=== PATIENT | male | born 1945 | race Caucasian/White ===

== ENCOUNTER → 2020-06-27 08:51 | Outpatient (BNVA) | payer MEDICARE, SELFPAY | PROVIDERS: PCP Internal Medicine; Referring Provider Internal Medicine; Visit Provider Orthopaedic Surgery | DX: M75.41 Impingement syndrome of right shoulder (principal); M19.011 Primary osteoarthritis, right shoulder | CPT/HCPCS: 20610; 99202; 99204; 99212; J1040 ==

== ENCOUNTER 2020-07-21 09:00 | Outpatient (RCR) | payer MEDICARE, SELFPAY ==
--- NOTE | 2020-06-30 15:03 | MHC.PT.EP ---
[facility] [place] Office [place] Office [place] Office [address] Sherwin Peguero [address] [phone] F: [phone] F: [phone] F: [phone] F: [phone] Physical Therapy Plan of Care Date of Evaluation: 06/30/20 Date of Surgery: n/a Diagnosis: R shoulder pain Assessment: Patient is a 75 year old R handed male who presents with s/s consistent with R shoulder pain. He has been limited for several month and received a cortisone 3 days ago. He has a history of cervical surgery (fusion?). He enjoys golf and billiards but hasn't been able to play each. Current impairments include pain, ROM, strength, safety, posture, activity tolerance and functional mobility. Functional limitations include decreased ability to dress, lift, reach, pull, sleep, and perform weight bearing activities.. Patient is motivated with good rehab potential. Skilled PT will address impairments and functional limitations in order to achieve goals. Frequency and Duration: The patient will be seen 2x/week for 6 weeks Short Term Goals: I with HEP - 2 weeks ER/IR arc 90 - 3 weeks Pain free flexion/abd to 120 - 3 weeks Rac Specialist Goals: (-) impingement cluster - 6 weeks ER/IR arc 120 - 6 weeks Able to sleep and dress pain free - 6 weeks SPADI 40/130 or less - 5 weeks Treatment Plan: Modalities to reduce pain, spasms and effusion. Manual therapy to restore motion and function. Therapeutic exercise to improve strength and flexibility. Neuromuscular re-education for posture and balance. Therapeutic activities to return to functional activities of daily living. Please sign and return to therapist. Thank you for your referral.
--- NOTE | 2020-08-16 07:53 | MHC.PT.DC ---
[facility] [place] Office [place] Office [place] Office [address] Sherwin Peguero [address] [phone] F: [phone] F: [phone] F: [phone] F: [phone] Physical Therapy Discharge Report Diagnosis: R shoulder pain Date of Surgery: n/a Date of Evaluation: 06/30/20 Date of Discharge: Treatments to Date: 4 Cancellations to Date: 0 No Shows to Date: 0 Discharge Status: Independent with HEP Discharge Summary: Pt I with HEP and feels good, no need for further PT at this time. Electronically signed by: Luis Miguel Cuevas, PT Please sign and return to therapist. Thank you for your referral.
== END 2020-08-16 07:54 | disposition home or self-care (01) ==
LOC: HO.PTCHIC 09:00
PROVIDERS: PCP Internal Medicine; Visit Provider Orthopaedic Surgery
DX: M75.41 Impingement syndrome of right shoulder (principal)
CPT/HCPCS: 97110; 97140; 97161

== ENCOUNTER 2020-08-16 10:12 | Outpatient (REF) | payer MEDICARE, SELFPAY ==
[2020-08-16 13:49] LABS: MANUAL DIFF FLAG NO
[2020-08-16 13:58] LABS: Basophils Percent Auto 0.5 % (0-2); Eosinophils Absolute Auto 0.3 X10*3/uL (0.0-0.4); Eosinophils Percent Auto 3.6 % (0-4); Hematocrit 42.6 % (42-52); Hemoglobin 13.3 g/dl (14.0-18.0); Imm Gran Abs Auto 0.02 X10*3/uL (0.00-0.03); Imm Gran Pct Auto 0.3 % (0.0-0.4); Lymphocytes Absolute Auto 1.7 X10*3/uL (1.2-4.9); Lymphocytes Percent Auto 21.6 % (20-40); Mean Corpuscular HGB Conc 31.2 g/dl (31.0-36.0); Mean Corpuscular Hemoglobin 26.5 pg (27.0-33.0); Mean Platelet Volume 9.7 fL (9.4-12.4); Monocytes Absolute Auto 0.7 X10*3/uL (0.1-1.2); Monocytes Percent Auto 9.3 % (2-11); Neutrophils Percent Auto 64.7 % (45-73); Platelet Count 244 X10*3/uL (160-400); Red Blood Count 5.01 X10*6/uL (4.60-5.80); Red Cell Distribution Width 13.2 % (11.0-16.0); White Blood Count 7.8 X10*3/uL (4.8-10.8)
[2020-08-16 14:05] LABS: Estimated Average Glucose 192 mg/dL; Hemoglobin A1c % 8.3 %
[2020-08-16 14:29] LABS: Anion Gap 12 (12-20); Blood Urea Nitrogen 14 mg/dL (9-16); Calcium 8.7 mg/dL (8.4-10.2); Carbon Dioxide 29 mmol/L (22-29); Chloride 101 mmol/L (96-108); Estimated Glomerular Filt Rate > 60; Glucose Random 152 mg/dL (60-115); Potassium 4.5 mmol/l (3.3-5.1); Sodium 137 mmol/L (135-145)
== END 2020-08-16 10:13 | disposition home or self-care (01) ==
LOC: HO.10HDL 10:12
PROVIDERS: PCP Internal Medicine; Visit Provider Internal Medicine
DX: E11.9 Type 2 diabetes mellitus without complications (principal); I10 Essential (primary) hypertension; I25.10 Atherosclerotic heart disease of native coronary artery without angina pectoris
CPT/HCPCS: 36415; 80048; 83036; 85025

== ENCOUNTER 2020-10-30 11:03 | Outpatient (REF) | payer MEDICARE, SELFPAY ==
[2020-10-30 15:10] LABS: Prostate Specific Antigen < 0.05 ng/mL (<0.05-4.0)
== END 2020-10-30 11:04 | disposition home or self-care (01) ==
LOC: HO.10HDL 11:03
PROVIDERS: Visit Provider Urology
DX: Z12.5 Encounter for screening for malignant neoplasm of prostate (principal); C61 Malignant neoplasm of prostate
CPT/HCPCS: 36415; 84153

== ENCOUNTER → 2020-11-07 10:18 | Outpatient (BNVA) | payer MEDICARE, SELFPAY | PROVIDERS: PCP Internal Medicine; Visit Provider Urology | DX: Z13.89 Encounter for screening for other disorder (principal) | CPT/HCPCS: Q3014 ==

== ENCOUNTER → 2020-11-14 08:20 | Outpatient (BNVA) | payer MEDICARE, SELFPAY | PROVIDERS: PCP Internal Medicine; Visit Provider Orthopaedic Surgery | DX: M75.41 Impingement syndrome of right shoulder (principal) | CPT/HCPCS: 20610; 99212; J1040 ==

== ENCOUNTER 2020-11-22 10:14 | Outpatient (REF) | payer MEDICARE, SELFPAY ==
[2020-11-22 13:43] LABS: MANUAL DIFF FLAG NO
[2020-11-22 13:49] LABS: Basophils Percent Auto 0.3 % (0-2); Eosinophils Absolute Auto 0.3 X10*3/uL (0.0-0.4); Eosinophils Percent Auto 2.5 % (0-4); Hematocrit 42.6 % (42-52); Hemoglobin 13.5 g/dl (14.0-18.0); Imm Gran Abs Auto 0.04 X10*3/uL (0.00-0.03); Imm Gran Pct Auto 0.3 % (0.0-0.4); Lymphocytes Absolute Auto 1.9 X10*3/uL (1.2-4.9); Lymphocytes Percent Auto 16.2 % (20-40); Mean Corpuscular HGB Conc 31.7 g/dl (31.0-36.0); Mean Corpuscular Hemoglobin 26.8 pg (27.0-33.0); Mean Corpuscular Volume 84.5 fL (80-98); Monocytes Percent Auto 8.4 % (2-11); Neutrophils Absolute Auto 8.5 X10*3/uL (2.0-8.3); Neutrophils Percent Auto 72.3 % (45-73); Platelet Count 266 X10*3/uL (160-400); Red Blood Count 5.04 X10*6/uL (4.60-5.80); Red Cell Distribution Width 13.2 % (11.0-16.0); White Blood Count 11.8 X10*3/uL (4.8-10.8)
[2020-11-22 13:59] LABS: Estimated Average Glucose 183 mg/dL
[2020-11-22 14:10] LABS: Troponin-I High Sensitivity 4.7 ng/L (<3.5-35.0)
[2020-11-22 14:15] LABS: Alanine Aminotransferase 22 U/L (0-40); Albumin Level 4.4 g/dL (3.5-5.0); Alkaline Phosphatase 75 U/L (39-117); Anion Gap 15 (12-20); Aspartate Amino Transferase 16 U/L (5-37); Bilirubin Total 1.1 mg/dL (0.0-1.0); Blood Urea Nitrogen 15 mg/dL (9-16); Calcium 9.2 mg/dL (8.4-10.2); Carbon Dioxide 25 mmol/L (22-29); Chloride 102 mmol/L (96-108); Estimated Glomerular Filt Rate > 60; Glucose Random 146 mg/dL (60-115); Potassium 4.7 mmol/L (3.3-5.1); Sodium 137 mmol/L (135-145); Total Protein 6.7 g/dL (6.5-8.0)
== END 2020-11-22 10:15 | disposition home or self-care (01) ==
LOC: HO.10HDL 10:14
PROVIDERS: Visit Provider Internal Medicine
DX: J44.9 Chronic obstructive pulmonary disease, unspecified (principal); I25.10 Atherosclerotic heart disease of native coronary artery without angina pectoris; E11.9 Type 2 diabetes mellitus without complications; I10 Essential (primary) hypertension
CPT/HCPCS: 36415; 80053; 82550; 83036; 84484; 85025

== ENCOUNTER 2020-12-06 09:12 | Outpatient (REF) | payer MEDICARE, SELFPAY ==
[2020-12-06 10:05] LABS: MANUAL DIFF FLAG NO
[2020-12-06 10:17] LABS: Basophils Percent Auto 0.2 % (0-2); Eosinophils Absolute Auto 0.1 X10*3/uL (0.0-0.4); Eosinophils Percent Auto 2.5 % (0-4); Hematocrit 42.8 % (42-52); Hemoglobin 13.4 g/dl (14.0-18.0); Imm Gran Abs Auto 0.01 X10*3/uL (0.00-0.03); Imm Gran Pct Auto 0.2 % (0.0-0.4); Lymphocytes Absolute Auto 1.2 X10*3/uL (1.2-4.9); Lymphocytes Percent Auto 24.2 % (20-40); Mean Corpuscular HGB Conc 31.3 g/dl (31.0-36.0); Mean Corpuscular Hemoglobin 26.4 pg (27.0-33.0); Mean Corpuscular Volume 84.3 fL (80-98); Mean Platelet Volume 9.4 fL (9.4-12.4); Monocytes Absolute Auto 0.4 X10*3/uL (0.1-1.2); Monocytes Percent Auto 7.4 % (2-11); Neutrophils Absolute Auto 3.2 X10*3/uL (2.0-8.3); Neutrophils Percent Auto 65.5 % (45-73); Platelet Count 159 X10*3/uL (160-400); Red Blood Count 5.08 X10*6/uL (4.60-5.80); Red Cell Distribution Width 13.2 % (11.0-16.0); White Blood Count 4.8 X10*3/uL (4.8-10.8)
[2020-12-06 10:56] LABS: Anion Gap 11 (12-20); C Reactive Protein 0.27 mg/dL (< or = 0.50); Carbon Dioxide 28 mmol/L (22-29); Chloride 102 mmol/L (96-108); Estimated Glomerular Filt Rate > 60; Glucose Fasting 156 mg/dL (60-99); Potassium 4.2 mmol/L (3.3-5.1); Rheumatoid Factor < 15.0 IU/mL (<15.0); Sodium 137 mmol/L (135-145)
[2020-12-06 11:00] LABS: Blood Urea Nitrogen 16 mg/dL (9-16); Calcium 8.6 mg/dL (8.4-10.2)
[2020-12-06 11:04] LABS: Free T4 (Free Thyroxine) 0.96 ng/dL (0.71-1.85); Thyroid Stimulating Hormone 1.98 uIU/mL (0.32-4.0)
[2020-12-07 04:27] LABS: Vitamin B12 305 pg/mL (200-900)
[2020-12-07 23:26] LABS: Anti Nuclear Antibody Screen NEGATIVE (NEGATIVE)
== END 2020-12-06 09:13 | disposition home or self-care (01) ==
LOC: HO.10HDL 09:12
PROVIDERS: Visit Provider Internal Medicine
DX: E78.00 Pure hypercholesterolemia, unspecified (principal); R53.83 Other fatigue; E11.9 Type 2 diabetes mellitus without complications; M79.10 Myalgia, unspecified site; I25.10 Atherosclerotic heart disease of native coronary artery without angina pectoris
CPT/HCPCS: 36415; 80048; 82550; 82607; 84439; 84443; 85025; 86038; 86039; 86140; 86431

== ENCOUNTER 2020-12-12 11:34 | Emergency (ER) | payer MEDICARE, SELFPAY ==
--- NOTE | ~2020-12-12 | XR_ITS ---
EXAMINATION: XR CHEST CLINICAL INFORMATION: Cough. COMPARISON: None TECHNIQUE: Frontal view of the chest was obtained. FINDINGS: The lungs are well-expanded and clear of acute process. The heart size and pulmonary vascularity is normal. There is moderate spondylosis of dorsal spine. No lytic process. XR/XR chest 1V IMPRESSION: Unremarkable chest exam.
[2020-12-12 11:48] VITALS: BP 115/64; BP 118/70; PULSE 76; PULSE 83; RESP 18; TEMP 37.5; O2SAT 98; BMI 30.4
--- NOTE | 2020-12-12 12:48 | ED.GENADULT ---
HPI - General Adult General Chief complaint: General Medical Stated complaint: INC FATIGUE,COUGH,WEAKNESS,COVID VACC REC Time Seen by Provider: 12/12/20 12:48 Source: patient Mode of arrival: EMS Limitations: no limitations History of Present Illness HPI narrative: patient comes in because his has been sick for 5 days and he has been sick for 3, fatigue and cough Onset (ago): day(s) Severity: moderate Relieving factors: none Associated symptoms: cough, malaise and weakness Related Data Home Medications Medication Instructions Recorded Confirmed atorvastatin 40 mg tablet 40 mg PO DAILY 06/26/20 carvedilol 3.125 mg tablet 3.125 mg PO BID 06/26/20 finasteride 5 mg tablet 5 mg PO DAILY 06/26/20 lisinopril 40 mg tablet 40 mg PO DAILY 06/26/20 metformin 500 mg tablet 500 mg PO BID 06/26/20 omeprazole 20 mg capsule,delayed 20 mg PO DAILY 06/26/20 release sulfacetamide sodium-sulfur 10 %-5 1 applic TOPICAL DAILY 06/27/20 % (w/w) topical cleanser amlodipine 5 mg tablet 5 mg PO DAILY 11/07/20 carvedilol 6.25 mg tablet 6.25 mg PO BID 11/07/20 ezetimibe 10 mg tablet 10 mg PO DAILY 11/07/20 valacyclovir 1 gram tablet 1,000 mg PO BID 11/07/20 Allergies Allergy/AdvReac Type Severity Reaction Status Date / Time codeine [CODEINE] Allergy Intermediate HIVES Verified 11/14/20 08:30 pseudoephedrine Allergy Rash Verified 12/12/20 11:48 [From [facility]] Codeine Phosphate Allergy Unknown nausea Uncoded 11/14/20 08:30 Review of Systems Constitutional: Constitutional: Reports no additional constitutional complaints Eyes: Eyes: Reports no additional eye complaints ENT: Denies dizziness Cardiovascular: Cardiovascular: Reports no additional cardiovascular complaints Respiratory: Respiratory: Reports as per HPI Gastrointestinal: Gastrointestinal: Reports no additional gastrointestinal complaints Musculoskeletal: Musculoskeletal: Reports no additional musculoskeletal complaints Integumentary/Breasts: Skin/Breast: Denies rash Neurologic: Reports system reviewed and no additional complaints, except as documented, Denies dizziness and Denies Sensory deficit (Neuro) Psychiatric: Psychiatric: Denies anxiety PMFSH Past Medical History Medical History Elevated PSA Hypercholesterolemia Hypogonadism in male Incomplete emptying of bladder Myocardial infarction Nocturia Prostate cancer Scrotal pruritus Surgical History History of appendectomy History of neck surgery History of tonsillectomy Family History Family History Father CVD (cardiovascular disease) Mother No problems noted. Social History Social History Alcohol intake: never Smoking Status: Never smoker Use of substances other than those prescribed or required for medical reasons: No Advance Directives: No Advance Directives Information Provided: Yes Current occupational status: retired Current occupation: Right Handed Physical Exam Vital Signs: Vital Signs: Last Vital Signs Temp 100.3 F 12/12/20 14:00 Pulse 75 12/12/20 14:00 Resp 18 12/12/20 14:00 BP 114/64 12/12/20 14:00 Pulse Ox 97 12/12/20 14:00 Body Mass Index 30.4 Const: General: healthy appearing Nutritional Appearance: average body habitus Orientation/consciousness: oriented to person and patient oriented x3 Limitations: no limitations HENMT: Head: Yes normal to inspection Ears: external ears normal General nose exam: Normal external nose present Mouth: Normal oral and palatal mucosa present and oropharynx normal Throat: Yes posterior oropharynx normal Eyes: General: appearance normal, both eyes and all related structures Neck: Other: supple Neck: Yes normal visual inspection Chest: Chest palpation & inspection: normal inspection of the chest Resp: Auscultation: clear to auscultation bilaterally Cardio: Jugular venous distension: no JVD Rate: regular rate Rhythm: regular rhythm Heart sounds: S1 normal heart sound present and S2 normal heart sound present GI: Inspection: Yes normal to inspection Palpation (GI): Soft to palpation, nontender and No hepatosplenomegaly present Auscultation: normal bowel sounds : General: Yes no CVA tenderness Back/Spine/Pelvis: Back: no CVA tenderness Skin: General skin exam: no rashes or lesions noted Neuro: General: oriented to person and patient oriented x3 Cranial nerves: Yes CN's II-XII intact bilaterally Motor exam (neuro): 5/5 motor strength present throughout Sensory Exam: No Sensory deficit (Neuro) Extrem: General: Yes normal to inspection Psych: Appearance: grossly normal Course Course Course Narrative: symptoms and testing consistent with COVID. xray and labs normal Medical Decision Making Lab Data Result diagrams: 12/12/20 13:57 12/12/20 13:57 Labs: Lab Results 12/12/20 12/12/20 12/12/20 Range/Units 13:57 13:57 13:57 WBC 4.9 (4.8-10.8) X10*3/uL RBC 4.97 (4.60-5.80) X10*6/uL Hgb 13.4 L (14.0-18.0) g/dl Hct 41.0 L (42-52) % MCV 82.5 (80-98) fL MCH 27.0 (27.0-33.0) pg MCHC 32.7 (31.0-36.0) g/dl RDW 13.0 (11.0-16.0) % Plt Count 187 (160-400) X10*3/uL MPV 9.1 L (9.4-12.4) fL Immature Gran % (Auto) 0.4 (0.0-0.4) % Neut % (Auto) 66.0 (45-73) % Lymph % (Auto) 21.9 (20-40) % Nolan % (Auto) 11.5 H (2-11) % Eos % (Auto) 0.2 (0-4) % Baso % (Auto) 0.0 (0-2) % Lymph # (Auto) 1.1 L (1.2-4.9) X10*3/uL Nolan # (Auto) 0.6 (0.1-1.2) X10*3/uL Eos # (Auto) 0.0 (0.0-0.4) X10*3/uL Baso # (Auto) 0.0 (0.0-0.2) X10*3/uL Abs Immat Gran (auto) 0.02 (0.00-0.03) X10*3/uL Absolute Neuts (auto) 3.2 (2.0-8.3) X10*3/uL Absolute Nucleated RBC 0.000 (0.0-0.012) X10*3/uL Nucleated RBC % (auto) 0.0 (0.0-0.2) /100WBC Sodium 131 L (135-145) mmol/L Potassium 4.8 (3.3-5.1) mmol/L Chloride 96 (96-108) mmol/L Carbon Dioxide 26 (22-29) mmol/L Anion Gap 14 (12-20) BUN 17 H (9-16) mg/dL Creatinine 0.85 (0.5-1.4) mg/dL Estim Creat Clear Calc 84.6 Estimated GFR > 60 Random Glucose 134 H (60-115) mg/dL Calcium 8.2 L (8.4-10.2) mg/dL Coronavirus (PCR) POSITIVE A (Negative) Influenza Type A (PCR) NEGATIVE (Negative) Influenza Type B (PCR) NEGATIVE (Negative) RSV RNA Qual (PCR) NEGATIVE (Negative) Imaging Data Chest x-ray: Radiologist's impression: no infiltate Discharge Plan Discharge Clinical Impression: 2019 novel coronavirus disease (COVID-19) Patient Disposition: Home, Self-Care Instructions: COVID-19 (Coronavirus Disease 2019) (ED) Additional Instructions: fluids as tolerated Referrals: Pedro Pablo Cordova MD [Primary Care Provider] - 2 days
[2020-12-12 14:00] VITALS: BP 114/64; PULSE 75; RESP 18; TEMP 37.9; O2SAT 97
[2020-12-12 14:04] LABS: MANUAL DIFF FLAG NO
[2020-12-12 14:05] LABS: Eosinophils Percent Auto 0.2 % (0-4); Hemoglobin 13.4 g/dl (14.0-18.0); Imm Gran Abs Auto 0.02 X10*3/uL (0.00-0.03); Imm Gran Pct Auto 0.4 % (0.0-0.4); Lymphocytes Absolute Auto 1.1 X10*3/uL (1.2-4.9); Lymphocytes Percent Auto 21.9 % (20-40); Mean Corpuscular HGB Conc 32.7 g/dl (31.0-36.0); Mean Corpuscular Volume 82.5 fL (80-98); Mean Platelet Volume 9.1 fL (9.4-12.4); Monocytes Absolute Auto 0.6 X10*3/uL (0.1-1.2); Monocytes Percent Auto 11.5 % (2-11); Neutrophils Absolute Auto 3.2 X10*3/uL (2.0-8.3); Platelet Count 187 X10*3/uL (160-400); Red Blood Count 4.97 X10*6/uL (4.60-5.80); White Blood Count 4.9 X10*3/uL (4.8-10.8)
[2020-12-12 14:24] LABS: Anion Gap 14 (12-20); Blood Urea Nitrogen 17 mg/dL (9-16); Calcium 8.2 mg/dL (8.4-10.2); Carbon Dioxide 26 mmol/L (22-29); Chloride 96 mmol/L (96-108); Creatinine Clr Calc Pharmacy 84.6; Estimated Glomerular Filt Rate > 60; Glucose Random 134 mg/dL (60-115); Potassium 4.8 mmol/L (3.3-5.1); Sodium 131 mmol/L (135-145)
[2020-12-12 14:55] LABS: Influenza A PCR NEGATIVE (Negative); Influenza B PCR NEGATIVE (Negative); Resp Syncy Virus RNA Qual PCR NEGATIVE (Negative); SARS COV2 PCR INHOUSE POSITIVE (Negative)
== END 2020-12-12 16:00 | disposition home or self-care (01) ==
PROVIDERS: Emergency Provider Emergency Medicine; PCP Internal Medicine
DX: U07.1 COVID-19 (principal); E78.5 Hyperlipidemia, unspecified; I25.2 Old myocardial infarction; Z85.46 Personal history of malignant neoplasm of prostate
CPT/HCPCS: 0241U; 36415; 71045; 80048; 85025; 99283; 99284

== ENCOUNTER → 2021-04-11 14:45 | Outpatient (BNVA) | payer MEDICARE, SELFPAY | PROVIDERS: PCP Internal Medicine; Visit Provider Internal Medicine | DX: I25.10 Atherosclerotic heart disease of native coronary artery without angina pectoris (principal); I10 Essential (primary) hypertension; E78.5 Hyperlipidemia, unspecified; E11.8 Type 2 diabetes mellitus with unspecified complications | CPT/HCPCS: 93005; 99202 ==

== ENCOUNTER 2021-04-30 09:11 | Outpatient (REF) | payer MEDICARE, SELFPAY ==
[2021-04-30 10:14] LABS: MANUAL DIFF FLAG NO
[2021-04-30 10:24] LABS: Basophils Percent Auto 0.7 % (0-2); Eosinophils Absolute Auto 0.3 X10*3/uL (0.0-0.4); Eosinophils Percent Auto 5.5 % (0-4); Hematocrit 41.5 % (42-52); Hemoglobin 13.3 g/dl (14.0-18.0); Imm Gran Abs Auto 0.02 X10*3/uL (0.00-0.03); Imm Gran Pct Auto 0.4 % (0.0-0.4); Lymphocytes Percent Auto 34.9 % (20-40); Mean Corpuscular Hemoglobin 26.4 pg (27.0-33.0); Mean Corpuscular Volume 82.5 fL (80-98); Mean Platelet Volume 9.5 fL (9.4-12.4); Monocytes Absolute Auto 0.6 X10*3/uL (0.1-1.2); Monocytes Percent Auto 10.2 % (2-11); Neutrophils Absolute Auto 2.7 X10*3/uL (2.0-8.3); Neutrophils Percent Auto 48.3 % (45-73); Platelet Count 214 X10*3/uL (160-400); Red Blood Count 5.03 X10*6/uL (4.60-5.80); White Blood Count 5.6 X10*3/uL (4.8-10.8)
[2021-04-30 11:05] LABS: Creatinine Urine 107.18 mg/dL; Microalbum/Creatinine Ratio Ur 23.3 ug/mg cr
[2021-04-30 11:06] LABS: Estimated Average Glucose 189 mg/dL; Hemoglobin A1c % 8.2 %
[2021-04-30 11:22] LABS: Alanine Aminotransferase 27 U/L (0-40); Albumin Level 4.3 g/dL (3.5-5.0); Alkaline Phosphatase 73 U/L (39-117); Anion Gap 11 (12-20); Aspartate Amino Transferase 17 U/L (5-37); Bilirubin Total 0.6 mg/dL (0.0-1.0); Blood Urea Nitrogen 12 mg/dL (9-16); Calcium 9.2 mg/dL (8.4-10.2); Carbon Dioxide 26 mmol/L (22-29); Chloride 107 mmol/L (96-108); Cholesterol 124 mg/dL; Estimated Glomerular Filt Rate > 60; Glucose Fasting 157 mg/dL (60-99); HDL Cholesterol 39 mg/dL; LDL Cholesterol Calculated 68 mg/dl; Potassium 4.5 mmol/L (3.3-5.1); Sodium 139 mmol/L (135-145); Total Protein 6.6 g/dL (6.5-8.0); Triglycerides 85 mg/dL
[2021-04-30 11:23] LABS: Prostate Specific Antigen < 0.05 ng/mL (<0.05-4.0)
== END 2021-04-30 09:12 | disposition home or self-care (01) ==
LOC: HO.10HDL 09:11
PROVIDERS: Absent Provider Internal Medicine; Visit Provider Urology
DX: Z12.5 Encounter for screening for malignant neoplasm of prostate (principal); C61 Malignant neoplasm of prostate; N13.8 Other obstructive and reflux uropathy; N40.1 Benign prostatic hyperplasia with lower urinary tract symptoms; I10 Essential (primary) hypertension; E78.00 Pure hypercholesterolemia, unspecified; E11.9 Type 2 diabetes mellitus without complications; I25.10 Atherosclerotic heart disease of native coronary artery without angina pectoris
CPT/HCPCS: 36415; 80053; 80061; 82043; 83036; 84153; 85025

== ENCOUNTER → 2021-05-10 10:32 | Outpatient (BNVA) | payer MEDICARE, SELFPAY | PROVIDERS: PCP Internal Medicine; Visit Provider Urology | DX: C61 Malignant neoplasm of prostate (principal) | CPT/HCPCS: Q3014 ==

== ENCOUNTER 2021-05-25 13:25 | Outpatient (REF) | payer MEDICARE, SELFPAY ==
[2021-05-25 14:29] LABS: Influenza A PCR NEGATIVE (Negative); Influenza B PCR NEGATIVE (Negative); Resp Syncy Virus RNA Qual PCR NEGATIVE (Negative); SARS COV2 PCR INHOUSE NEGATIVE (Negative)
== END 2021-05-25 13:26 | disposition home or self-care (01) ==
LOC: HO.LNP 13:25
PROVIDERS: Visit Provider Internal Medicine
DX: Z20.822 Contact with and (suspected) exposure to COVID-19 (principal); J02.9 Acute pharyngitis, unspecified; R09.82 Postnasal drip
CPT/HCPCS: 0241U

== ENCOUNTER → 2021-06-04 10:35 | Outpatient (BNVA) | payer MEDICARE, SELFPAY | PROVIDERS: PCP Internal Medicine; Visit Provider Physician Assistant | DX: M75.41 Impingement syndrome of right shoulder (principal) | CPT/HCPCS: 20610; 99212; J1040 ==

== ENCOUNTER 2021-07-09 11:48 | Outpatient (REF) | payer MEDICARE, SELFPAY ==
--- NOTE | ~2021-07-09 | XR_ITS ---
EXAMINATION: XR PELVIS CLINICAL INFORMATION: Status post fall at home. Right-sided pelvic pain. Suspected fracture. COMPARISON: Left hip done on 05/20/2019. TECHNIQUE: AP view of the pelvis. FINDINGS: The bony alignments are intact. The cortices are intact. Few surgical clips are seen projecting over the symphysis pubis, unchanged. Atherosclerotic calcifications of both iliofemoral arteries are noted. XR/XR pelvis 1-2V IMPRESSION: No radiographic evidence of any displaced pelvic fracture.
== END 2021-07-09 11:49 | disposition home or self-care (01) ==
LOC: HO.XRAY 11:48
PROVIDERS: Visit Provider Internal Medicine
DX: R10.2 Pelvic and perineal pain (principal); Z91.81 History of falling
CPT/HCPCS: 72170

== ENCOUNTER 2021-09-24 11:39 | Outpatient (REF) | payer MEDICARE, SELFPAY ==
[2021-09-24 13:40] LABS: MANUAL DIFF FLAG NO
[2021-09-24 13:54] LABS: Basophils Absolute Auto 0.1 X10*3/uL (0.0-0.2); Basophils Percent Auto 0.7 % (0-2); Eosinophils Absolute Auto 0.7 X10*3/uL (0.0-0.4); Eosinophils Percent Auto 9.9 % (0-4); Hematocrit 41.7 % (42.0-52.0); Hemoglobin 13.2 g/dl (14.0-18.0); Imm Gran Abs Auto 0.02 X10*3/uL (0.00-0.03); Imm Gran Pct Auto 0.3 % (0.0-0.4); Lymphocytes Absolute Auto 2.1 X10*3/uL (1.2-4.9); Mean Corpuscular HGB Conc 31.7 g/dl (31.0-36.0); Mean Corpuscular Hemoglobin 26.6 pg (27.0-33.0); Mean Corpuscular Volume 84.1 fL (80.0-98.0); Mean Platelet Volume 9.9 fL (9.4-12.4); Monocytes Absolute Auto 0.6 X10*3/uL (0.1-1.2); Neutrophils Absolute Auto 3.7 x10*3/uL (2.0-8.3); Neutrophils Percent Auto 51.1 % (45-73); Platelet Count 235 X10*3/uL (160-400); Red Blood Count 4.96 X10*6/uL (4.60-5.80); Red Cell Distribution Width 12.8 % (11.0-16.0); White Blood Count 7.1 X10*3/uL (4.8-10.8)
[2021-09-24 14:04] LABS: Estimated Average Glucose 189 mg/dL; Hemoglobin A1c % 8.2 %
[2021-09-24 14:08] LABS: Alanine Aminotransferase 26 U/L (0-40); Albumin Level 4.2 g/dL (3.5-5.0); Alkaline Phosphatase 76 U/L (39-117); Anion Gap 11 (12-20); Aspartate Amino Transferase 16 U/L (5-37); Bilirubin Total 0.5 mg/dL (0.0-1.0); Blood Urea Nitrogen 12 mg/dL (9-16); Calcium 9.4 mg/dL (8.4-10.2); Carbon Dioxide 25 mmol/L (22-29); Chloride 104 mmol/L (96-108); Estimated Glomerular Filt Rate > 60; Glucose Random 241 mg/dL (60-115); Iron 77 mcg/dL (45-160); Percent Iron Saturation 27 % (15-50); Potassium 4.4 mmol/L (3.3-5.1); Sodium 136 mmol/L (135-145); Total Iron Binding Capacity 286 mcg/dL (228-428); Total Protein 6.7 g/dL (6.5-8.0); Unsaturated Iron Binding 209 ug/dL
[2021-09-24 14:19] LABS: Creatinine Urine 45.45 mg/dL; Microalbum/Creatinine Ratio Ur 19.8 ug/mg cr
== END 2021-09-24 11:40 | disposition home or self-care (01) ==
LOC: HO.10HDL 11:39
PROVIDERS: Visit Provider Internal Medicine
DX: I12.9 Hypertensive chronic kidney disease with stage 1 through stage 4 chronic kidney disease, or unspecified chronic kidney disease (principal); N18.9 Chronic kidney disease, unspecified; E11.22 Type 2 diabetes mellitus with diabetic chronic kidney disease; D64.9 Anemia, unspecified
CPT/HCPCS: 36415; 80053; 82043; 83036; 83540; 85025

== ENCOUNTER → 2021-10-11 08:55 | Outpatient (BNVA) | payer MEDICARE, SELFPAY | PROVIDERS: PCP Internal Medicine; Referring Provider Internal Medicine; Visit Provider Internal Medicine | DX: I25.10 Atherosclerotic heart disease of native coronary artery without angina pectoris (principal); I10 Essential (primary) hypertension; E11.8 Type 2 diabetes mellitus with unspecified complications; E78.5 Hyperlipidemia, unspecified | CPT/HCPCS: 99212 ==

== ENCOUNTER 2021-10-30 10:01 | Outpatient (REF) | payer MEDICARE, SELFPAY ==
[2021-10-30 14:37] LABS: Prostate Specific Antigen < 0.05 ng/mL (<0.05-4.0)
== END 2021-10-30 10:02 | disposition home or self-care (01) ==
LOC: HO.10HDL 10:01
PROVIDERS: Visit Provider Urology
DX: N40.1 Benign prostatic hyperplasia with lower urinary tract symptoms (principal); N13.8 Other obstructive and reflux uropathy; Z12.5 Encounter for screening for malignant neoplasm of prostate
CPT/HCPCS: 36415; 84153

== ENCOUNTER → 2021-11-28 08:29 | Outpatient (BNVA) | payer MEDICARE, SELFPAY | PROVIDERS: PCP Internal Medicine; Visit Provider Urology | DX: C61 Malignant neoplasm of prostate (principal) | CPT/HCPCS: Q3014 ==

== ENCOUNTER → 2022-01-21 10:58 | Outpatient (BNVA) | payer MEDICARE, SELFPAY | PROVIDERS: PCP Internal Medicine; Visit Provider Physician Assistant | DX: M75.41 Impingement syndrome of right shoulder (principal) | CPT/HCPCS: 20610; 99212; J1040 ==

== ENCOUNTER 2022-02-12 08:39 | Outpatient (REF) | payer MEDICARE, SELFPAY ==
[2022-02-12 09:13] LABS: MANUAL DIFF FLAG NO
[2022-02-12 09:28] LABS: Basophils Percent Auto 0.6 % (0-2); Eosinophils Absolute Auto 0.4 X10*3/uL (0.0-0.4); Eosinophils Percent Auto 5.8 % (0-4); Hematocrit 38.3 % (42.0-52.0); Imm Gran Abs Auto 0.01 X10*3/uL (0.00-0.03); Imm Gran Pct Auto 0.2 % (0.0-0.4); Lymphocytes Absolute Auto 2.2 X10*3/uL (1.2-4.9); Lymphocytes Percent Auto 33.8 % (20-40); Mean Corpuscular HGB Conc 31.3 g/dl (31.0-36.0); Mean Corpuscular Hemoglobin 26.1 pg (27.0-33.0); Mean Corpuscular Volume 83.3 fL (80.0-98.0); Mean Platelet Volume 9.4 fL (9.4-12.4); Monocytes Absolute Auto 0.6 X10*3/uL (0.1-1.2); Monocytes Percent Auto 9.5 % (2-11); Neutrophils Absolute Auto 3.3 x10*3/uL (2.0-8.3); Neutrophils Percent Auto 50.1 % (45-73); Platelet Count 198 X10*3/uL (160-400); Red Cell Distribution Width 13.7 % (11.0-16.0); White Blood Count 6.6 X10*3/uL (4.8-10.8)
[2022-02-12 09:50] LABS: Estimated Average Glucose 183 mg/dL
[2022-02-12 10:01] LABS: Alanine Aminotransferase 23 U/L (0-40); Alkaline Phosphatase 68 U/L (39-117); Anion Gap 12 (12-20); Aspartate Amino Transferase 16 U/L (5-37); Bilirubin Total 0.6 mg/dL (0.0-1.0); Blood Urea Nitrogen 12 mg/dL (9-16); Calcium 8.9 mg/dL (8.4-10.2); Carbon Dioxide 25 mmol/L (22-29); Chloride 104 mmol/L (96-108); Estimated Glomerular Filt Rate > 60; Glucose Random 151 mg/dL (60-115); Potassium 4.6 mmol/L (3.3-5.1); Sodium 136 mmol/L (135-145); Total Protein 6.1 g/dL (6.5-8.0)
[2022-02-12 11:32] LABS: Creatinine Urine 33.94 mg/dL; Microalbum/Creatinine Ratio Ur 23.5 ug/mg cr
== END 2022-02-12 08:40 | disposition home or self-care (01) ==
LOC: HO.LAB 08:39
PROVIDERS: PCP Internal Medicine; Visit Provider Internal Medicine
DX: I25.10 Atherosclerotic heart disease of native coronary artery without angina pectoris (principal); I10 Essential (primary) hypertension; E78.00 Pure hypercholesterolemia, unspecified; E11.9 Type 2 diabetes mellitus without complications
CPT/HCPCS: 36415; 80053; 82043; 83036; 85025

== ENCOUNTER → 2022-04-18 09:01 | Outpatient (BNVA) | payer MEDICARE, SELFPAY | PROVIDERS: PCP Internal Medicine; Referring Provider Internal Medicine; Visit Provider Internal Medicine | DX: I25.10 Atherosclerotic heart disease of native coronary artery without angina pectoris (principal); I10 Essential (primary) hypertension; I45.2 Bifascicular block; E78.5 Hyperlipidemia, unspecified; E11.8 Type 2 diabetes mellitus with unspecified complications; E06.2 Chronic thyroiditis with transient thyrotoxicosis; Z79.899 Other long term (current) drug therapy | CPT/HCPCS: 93005; 99212 ==

== ENCOUNTER 2022-05-17 07:47 | Outpatient (REF) | payer MEDICARE, SELFPAY ==
[2022-05-17 11:18] LABS: Estimated Average Glucose 177 mg/dL; Hemoglobin A1c % 7.8 %
[2022-05-17 11:28] LABS: Alanine Aminotransferase 28 U/L (0-40); Albumin Level 4.5 g/dL (3.5-5.0); Alkaline Phosphatase 88 U/L (39-117); Anion Gap 16 (12-20); Aspartate Amino Transferase 22 U/L (5-37); Bilirubin Total 0.8 mg/dL (0.0-1.0); Blood Urea Nitrogen 10 mg/dL (9-16); Calcium 9.4 mg/dL (8.4-10.2); Carbon Dioxide 25 mmol/L (22-29); Chloride 101 mmol/L (96-108); Estimated Glomerular Filt Rate > 60; Glucose Fasting 127 mg/dL (60-99); Potassium 4.6 mmol/L (3.3-5.1); Sodium 137 mmol/L (135-145); Total Protein 6.9 g/dL (6.5-8.0)
[2022-05-17 11:38] LABS: Prostate Specific Antigen < 0.05 ng/mL (<0.05-4.0)
== END 2022-05-17 07:48 | disposition home or self-care (01) ==
LOC: HO.10HDL 07:47
PROVIDERS: Absent Provider Internal Medicine; Visit Provider Urology
DX: Z12.5 Encounter for screening for malignant neoplasm of prostate (principal); E11.9 Type 2 diabetes mellitus without complications; I10 Essential (primary) hypertension; E78.00 Pure hypercholesterolemia, unspecified; C61 Malignant neoplasm of prostate
CPT/HCPCS: 36415; 80053; 83036; 84153

== ENCOUNTER → 2022-05-30 08:37 | Outpatient (BNVA) | payer MEDICARE, SELFPAY | PROVIDERS: PCP Internal Medicine; Visit Provider Urology | DX: C61 Malignant neoplasm of prostate (principal) | CPT/HCPCS: Q3014 ==

== ENCOUNTER → 2022-08-09 12:12 | Outpatient (BNVA) | payer MEDICARE, SELFPAY | PROVIDERS: PCP Internal Medicine; Visit Provider Physician Assistant | DX: M19.011 Primary osteoarthritis, right shoulder (principal); M75.41 Impingement syndrome of right shoulder | CPT/HCPCS: 20610; 99212; J1040 ==

== ENCOUNTER 2022-09-18 11:00 | Outpatient (REF) | payer MEDICARE, SELFPAY ==
[2022-09-18 13:59] LABS: MANUAL DIFF FLAG NO
[2022-09-18 14:05] LABS: Basophils Percent Auto 0.6 % (0-2); Eosinophils Absolute Auto 0.3 X10*3/uL (0.0-0.4); Eosinophils Percent Auto 4.1 % (0-4); Hematocrit 40.4 % (42.0-52.0); Hemoglobin 12.9 g/dl (14.0-18.0); Imm Gran Abs Auto 0.02 X10*3/uL (0.00-0.03); Imm Gran Pct Auto 0.3 % (0.0-0.4); Lymphocytes Absolute Auto 2.1 X10*3/uL (1.2-4.9); Lymphocytes Percent Auto 30.1 % (20-40); Mean Corpuscular HGB Conc 31.9 g/dl (31.0-36.0); Mean Corpuscular Hemoglobin 26.2 pg (27.0-33.0); Mean Corpuscular Volume 82.1 fL (80.0-98.0); Mean Platelet Volume 9.7 fL (9.4-12.4); Monocytes Absolute Auto 0.6 X10*3/uL (0.1-1.2); Monocytes Percent Auto 8.2 % (2-11); Neutrophils Absolute Auto 3.9 x10*3/uL (2.0-8.3); Neutrophils Percent Auto 56.7 % (45-73); Platelet Count 242 X10*3/uL (160-400); Red Blood Count 4.92 X10*6/uL (4.60-5.80); Red Cell Distribution Width 13.2 % (11.0-16.0); White Blood Count 6.9 X10*3/uL (4.8-10.8)
[2022-09-18 14:20] LABS: Estimated Average Glucose 197 mg/dL; Hemoglobin A1c % 8.5 %
[2022-09-18 14:31] LABS: Alanine Aminotransferase 23 U/L (0-40); Albumin Level 4.1 g/dL (3.5-5.0); Alkaline Phosphatase 77 U/L (39-117); Anion Gap 7 (12-20); Aspartate Amino Transferase 16 U/L (5-37); Bilirubin Total 0.8 mg/dL (0.0-1.0); Blood Urea Nitrogen 12 mg/dL (9-16); Calcium 9.2 mg/dL (8.4-10.2); Carbon Dioxide 29 mmol/L (22-29); Chloride 103 mmol/L (96-108); Cholesterol 121 mg/dL; Estimated Glomerular Filt Rate > 60; Glucose Fasting 155 mg/dL (60-99); HDL Cholesterol 35 mg/dL; LDL Cholesterol Calculated 70 mg/dl; Potassium 4.3 mmol/L (3.3-5.1); Sodium 135 mmol/L (135-145); Total Protein 6.3 g/dL (6.5-8.0); Triglycerides 80 mg/dL
[2022-09-18 14:32] LABS: Creatinine Urine 95.26 mg/dL; Microalbum/Creatinine Ratio Ur 17.8 ug/mg cr
== END 2022-09-18 11:01 | disposition home or self-care (01) ==
LOC: HO.HMGCLDS 11:00
PROVIDERS: PCP Internal Medicine; Visit Provider Internal Medicine
DX: I25.10 Atherosclerotic heart disease of native coronary artery without angina pectoris (principal); E11.9 Type 2 diabetes mellitus without complications; I10 Essential (primary) hypertension; E78.00 Pure hypercholesterolemia, unspecified
CPT/HCPCS: 36415; 80053; 80061; 82043; 83036; 85025

== ENCOUNTER → 2022-10-31 09:05 | Outpatient (BNVA) | payer MEDICARE, SELFPAY | PROVIDERS: PCP Internal Medicine; Referring Provider Internal Medicine; Visit Provider Internal Medicine | DX: I25.10 Atherosclerotic heart disease of native coronary artery without angina pectoris (principal); I45.2 Bifascicular block; I10 Essential (primary) hypertension; E11.8 Type 2 diabetes mellitus with unspecified complications; E78.5 Hyperlipidemia, unspecified | CPT/HCPCS: 99212 ==

== ENCOUNTER 2022-11-18 12:36 | Outpatient (REF) | payer MEDICARE, SELFPAY ==
[2022-11-18 15:07] LABS: Prostate Specific Antigen < 0.10 ng/mL (<0.05-4.0)
== END 2022-11-18 12:37 | disposition home or self-care (01) ==
LOC: HO.HMGCLDS 12:36
PROVIDERS: PCP Internal Medicine; Visit Provider Urology
DX: Z12.5 Encounter for screening for malignant neoplasm of prostate (principal); C61 Malignant neoplasm of prostate
CPT/HCPCS: 36415; 84153

== ENCOUNTER → 2022-12-03 09:17 | Outpatient (BNVA) | payer MEDICARE, SELFPAY | PROVIDERS: PCP Internal Medicine; Visit Provider Urology | DX: C61 Malignant neoplasm of prostate (principal); R97.21 Rising PSA following treatment for malignant neoplasm of prostate; Z79.82 Long term (current) use of aspirin | CPT/HCPCS: 51798; 99212 ==

== ENCOUNTER 2022-12-18 09:53 | Outpatient (REF) | payer MEDICARE, SELFPAY ==
[2022-12-18 11:46] LABS: Estimated Average Glucose 174 mg/dL; Hemoglobin A1c % 7.7 %
[2022-12-18 11:56] LABS: Anion Gap 9 (12-20); Blood Urea Nitrogen 10 mg/dL (9-16); Calcium 8.9 mg/dL (8.4-10.2); Carbon Dioxide 28 mmol/L (22-29); Chloride 108 mmol/L (96-108); Estimated Glomerular Filt Rate > 60; Glucose Random 148 mg/dL (60-115); Potassium 4.4 mmol/L (3.3-5.1); Sodium 141 mmol/L (135-145)
== END 2022-12-18 09:54 | disposition home or self-care (01) ==
LOC: HO.HMGCLDS 09:53
PROVIDERS: PCP Internal Medicine; Visit Provider Internal Medicine
DX: E11.9 Type 2 diabetes mellitus without complications (principal); I10 Essential (primary) hypertension; K21.9 Gastro-esophageal reflux disease without esophagitis
CPT/HCPCS: 36415; 80048; 83036

== ENCOUNTER 2022-12-30 10:39 | Outpatient (REF) | payer MEDICARE, SELFPAY ==
--- NOTE | ~2022-12-30 | XR_ITS ---
EXAMINATION: XR SHOULDER, RIGHT CLINICAL INFORMATION: Pain. COMPARISON: None available. TECHNIQUE: Three views of the right shoulder. FINDINGS: There is severe loss of AC joint space. The glenohumeral joint space is normal. No visible acute fracture, dislocation or subluxation seen. The soft tissues are normal. XR/XR shoulder RT min 2V IMPRESSION: Severe degenerative changes AC joint. No visible acute fracture or dislocation seen.
== END 2022-12-30 10:40 | disposition home or self-care (01) ==
LOC: HO.HOSX 10:39
PROVIDERS: Visit Provider Physician Assistant
DX: M75.41 Impingement syndrome of right shoulder (principal); M19.011 Primary osteoarthritis, right shoulder
CPT/HCPCS: 20610; 73030; 99212; J1020

== ENCOUNTER 2023-03-27 10:49 | Outpatient (REF) | payer MEDICARE, SELFPAY ==
--- NOTE | ~2023-03-27 | XR_ITS ---
EXAMINATION: XR CHEST CLINICAL INFORMATION: Shortness of breath. COPD. COMPARISON: 12/12/2020. TECHNIQUE: 2 views of the chest were obtained. FINDINGS: No significant abnormality is noted involving the heart, lungs, mediastinum, or soft tissues. There is mild scoliosis of the thoracic spine convex right. Multilevel degenerative marginal spurring is present with calcification of anterior longitudinal ligament at multiple levels. XR/XR chest 2V IMPRESSION: No acute disease.
[2023-03-27 11:05] LABS: MANUAL DIFF FLAG NO
[2023-03-27 12:02] LABS: Basophils Absolute Auto 0.1 X10*3/uL (0.0-0.2); Basophils Percent Auto 0.7 % (0-2); Eosinophils Absolute Auto 0.5 X10*3/uL (0.0-0.4); Eosinophils Percent Auto 6.8 % (0-4); Hematocrit 42.9 % (42.0-52.0); Hemoglobin 13.5 g/dl (14.0-18.0); Imm Gran Abs Auto 0.02 X10*3/uL (0.00-0.03); Imm Gran Pct Auto 0.3 % (0.0-0.4); Lymphocytes Absolute Auto 1.9 X10*3/uL (1.2-4.9); Lymphocytes Percent Auto 26.1 % (20-40); Mean Corpuscular HGB Conc 31.5 g/dl (31.0-36.0); Mean Corpuscular Hemoglobin 26.4 pg (27.0-33.0); Mean Corpuscular Volume 83.8 fL (80.0-98.0); Mean Platelet Volume 9.7 fL (9.4-12.4); Monocytes Absolute Auto 0.8 X10*3/uL (0.1-1.2); Neutrophils Absolute Auto 3.9 x10*3/uL (2.0-8.3); Neutrophils Percent Auto 55.1 % (45-73); Platelet Count 227 X10*3/uL (160-400); Red Blood Count 5.12 X10*6/uL (4.60-5.80); Red Cell Distribution Width 13.2 % (11.0-16.0); White Blood Count 7.1 X10*3/uL (4.8-10.8)
[2023-03-27 12:17] LABS: Estimated Average Glucose 171 mg/dL; Hemoglobin A1c % 7.6 %
[2023-03-27 13:24] LABS: Alanine Aminotransferase 19 U/L (0-40); Albumin Level 4.4 g/dL (3.5-5.0); Alkaline Phosphatase 77 U/L (39-117); Anion Gap 15 (12-20); Aspartate Amino Transferase 15 U/L (5-37); Bilirubin Total 0.8 mg/dL (0.0-1.0); Blood Urea Nitrogen 9 mg/dL (9-16); Calcium 9.5 mg/dL (8.4-10.2); Carbon Dioxide 24 mmol/L (22-29); Chloride 104 mmol/L (96-108); Estimated Glomerular Filt Rate > 60; Glucose Random 192 mg/dL (60-115); Iron 52 mcg/dL (45-160); Percent Iron Saturation 20 % (15-50); Potassium 4.4 mmol/L (3.3-5.1); Sodium 139 mmol/L (135-145); Total Iron Binding Capacity 266 mcg/dL (228-428); Total Protein 7.1 g/dL (6.5-8.0); Unsaturated Iron Binding 214 ug/dL
[2023-03-27 13:53] LABS: Appearance Urine Clear; Color Urine Yellow; Glucose Urine UA 250 mg/dL (Negative); Leukocyte Esterase Urine Negative (Negative); Nitrite Urine Negative (Negative); Specific Gravity - Urine <= 1.005 (1.005-1.025); Urine Blood Negative (Negative); Urine Ketones Negative (Negative); Urine Protein Negative (Neg-Trace)
[2023-03-27 14:36] LABS: Creatinine Urine 27.28 mg/dL; Microalbum/Creatinine Ratio Ur 58.6 ug/mg cr
== END 2023-03-27 10:50 | disposition home or self-care (01) ==
LOC: HO.XRAY 10:49
PROVIDERS: PCP Internal Medicine; Visit Provider Internal Medicine
DX: R06.02 Shortness of breath (principal); J44.9 Chronic obstructive pulmonary disease, unspecified; I10 Essential (primary) hypertension; I25.10 Atherosclerotic heart disease of native coronary artery without angina pectoris; E11.9 Type 2 diabetes mellitus without complications
CPT/HCPCS: 36415; 71046; 80053; 81003; 82043; 83036; 83540; 85025

== ENCOUNTER 2023-04-23 09:05 | Outpatient (REF) | payer MEDICARE, SELFPAY ==
--- NOTE | 2023-04-23 | PFT_ITS ---
INDICATION: COPD. SPIROMETRY: FEV to FVC 64% with an FEV1 of 1.98 L, which is 68% predicted and FVC of 3.1 L, which is 77% predicted. There is a significant response to bronchodilators with an improvement of the FVC by 14%. The maximum voluntary ventilation 53% predicted. LUNG VOLUMES: Total lung capacity 97% predicted with a residual volume 153% predicted. Expiratory reserve volume of 17% predicted. DIFFUSION CAPACITY: DLCO 74% predicted. COMPARISONS: None available. INTERPRETATION: There is an obstructive ventilatory defect consistent with moderate COPD. There is a significant response to bronchodilators noted and there is also a moderate decrease in the maximum voluntary ventilation secondary to deconditioning and also worsening dynamic inspiratory capacity. Lung volumes with significant air trapping due to the COPD, and there is a mild diffusion impairment. Clinical correlation warranted. MD BRET Lugo/[facility] / [id number]
== END 2023-04-23 09:06 | disposition home or self-care (01) ==
LOC: HO.RESP 09:05
PROVIDERS: PCP Internal Medicine; Visit Provider Internal Medicine
DX: J44.9 Chronic obstructive pulmonary disease, unspecified (principal)
CPT/HCPCS: 94060; 94727; 94729

== ENCOUNTER → 2023-04-23 09:15 | Outpatient (BNV) | payer MEDICARE, SELFPAY | PROVIDERS: PCP Internal Medicine; Visit Provider Hospitalist | DX: J44.9 Chronic obstructive pulmonary disease, unspecified (principal) | CPT/HCPCS: 94060; 94727; 94729 ==

== ENCOUNTER 2023-05-01 09:00 | Outpatient (AMB) | payer MEDICARE, SELFPAY ==
[2023-05-01 09:14] VITALS: BP 120/70; PULSE 59; O2SAT 98; BMI 29.2
--- NOTE | 2023-05-01 09:14 | A.OFFVIS_ITS ---
Intake Vital Signs 05/01/23 09:14 Height 5 ft 9 in Weight 198 lb BMI 29.2 BP 120/70 Blood Pressure Location Lt brachial Position Sitting Pulse 59 Pulse Source Pulse Oximeter Pulse Oximetry (%) 98 Oxygen Delivery Method Room Air Intake Visit Reasons: COPD Intake Note: pt is here as a new patient for copd, he states he was coughing, wheezing and short of breath, better on nebulizer but needs direction on what to do now. pft results. [facility] Specialist Required: No Allergies codeine [CODEINE] Allergy (Intermediate, Verified 05/01/23 09:25) HIVES pseudoephedrine [From Sudafed] Allergy (Verified 05/01/23 09:25) Rash Codeine Phosphate Allergy (Unknown, Uncoded 05/01/23 09:25) nausea Medication List - Last Reconciled 05/01/23 by Sigrid Estrada MD albuterol sulfate 90 mcg/actuation 0 mcg inhalation albuterol sulfate mg inhalation amlodipine 5 mg PO DAILY aspirin 81 mg PO DAILY atorvastatin (Lipitor) 40 mg PO DAILY carvedilol 6.25 mg PO BID cholecalciferol (vitamin D3) 50 mcg PO DAILY cinnamon bark (Cinnamon) 500 mg PO DAILY ezetimibe 10 mg PO DAILY fluticasone propion-salmeterol 250-50 mcg/dose 1 ea inhalation BID ibuprofen 600 mg PO BID PRN lisinopril 40 mg PO DAILY metformin 2 tabs AM, 1 tab PM orally 2 times a day; omeprazole 20 mg PO DAILY Do you need a note to return to daycare/school/sports/work: No HPI COPD HPI Details This 77 years old gentleman is being seen for the 1st time for pulmonary evaluation and management. His main complaint is shortness of breath on walking wild carrying some load like a heavy bag of grocerries . Walking on flat ground and not carrying any load is okay and he can walk even up to 2-3 miles at a time. This has been going on for the last 4-5 years, He has past history of smoking for almost 40 pack years but he quit when he was 57 years old. Patient has been treated for coronary artery disease, Recent cardiac catheterization showed only mild degree of obstructive coronary disease, which is being treated medically. About 2 months ago during hot and humid weather he had an attack of shortness of breath with wheezing, required a short course of prednisone, and used albuterol by nebulizer 3 to 4 times a day. Once he started taking prednisone his breathing became much better. He is maintained on fluticasone is-salmeterol 250-51 inhalation b.i.d. and now he needs to use nebulizer only once in a while. His also has chronic obstructive pulmonary disease and, many children and grandchildren have had bronchial asthma. So they have a family nebulizer at home from before. [facility] is the reviewed. [facility] Medical History (Updated 05/01/23 @ 10:03 by Sigrid Estrada MD) Allergic asthma Atherosclerotic cardiovascular disease COPD (chronic obstructive pulmonary disease) Elevated PSA Encounter for screening for malignant neoplasm of lung in former smoker who quit in past 15 years with 30 pack year history or greater Essential hypertension Hypercholesterolemia Hypogonadism in male Incomplete emptying of bladder Myocardial infarction Nocturia Other and unspecified hyperlipidemia Prostate cancer Scrotal pruritus Type 2 diabetes mellitus with unspecified complications Surgical History History of appendectomy History of neck surgery History of tonsillectomy Family History Father CVD (cardiovascular disease) Mother No problems noted. Social History Alcohol intake: current Alcohol intake frequency: 0-2 drinks per day Alcohol type: beer and hard liquor Patient Tobacco Use Status: Former Tobacco user Quit Date: 2005 Years Smoked: 14 +/- Current occupational status: retired Current occupation: Right Handed Review of Systems Const All systems reviewed & are unremarkable except as noted in HPI and below Eyes Reports no additional complaints ENT Reports no additional complaints Resp Reports as per HPI GI Reports no additional complaints Reports no additional complaints Musc Reports no additional complaints Skin/Breast Reports system reviewed and no additional complaints, except as documented Neuro Reports no additional complaints Psych Reports no additional complaints Endo Reports no additional complaints Steve/Lymph Reports no additional complaints Aller/Immun Reports no additional complaints Physical Exam Vital Signs: Last Vital Signs Pulse 59 05/01/23 09:14 BP 120/70 05/01/23 09:14 Pulse Ox 98 05/01/23 09:14 Oxygen Delivery Method Room Air 05/01/23 09:14 BMI result Body Mass Index 29.2 Const General: healthy appearing, comfortable, no acute distress, alert and awake Orientation/consciousness: patient oriented x3 HEENT Head: Yes normal to inspection General nose exam: No nasal polyps present and No nasal discharge present Face and sinus: Yes sinuses nontender Mouth: oropharynx normal Throat: Yes posterior oropharynx normal Eyes General: appearance normal, both eyes and all related structures Neck Neck: Yes normal visual inspection, Yes no lymphadenopathy, Yes trachea midline and Yes no JVD Thyroid: Thyroid normal Chest Chest palpation & inspection: normal inspection of the chest, normal palpation of entire chest wall and no tenderness Resp Effort & Inspection: normal respiratory effort Auscultation: clear to auscultation bilaterally, no crackles and no wheezes Cardio Palpation: normal PMI Rate: regular rate Rhythm: regular rhythm Heart sounds: no gallops and no murmurs Peripheral pulses: Peripheral pulses 2+ throughout GI Palpation (GI): Soft to palpation, nontender, No hepatosplenomegaly present and no masses Auscultation: normal bowel sounds Back/Spine/Pelvis Thoracic/Lumbar Spine: thoracic and lumbar spine normal to inspection Skin General skin exam: no rashes or lesions noted Neuro General: patient oriented x3 and no focal motor deficits Cranial nerves: Yes CN's II-XII intact bilaterally Extrem General: Yes normal to inspection, Yes no clubbing, cyanosis or edema and Yes no calf tenderness Psych Appearance: grossly normal and well kempt Speech and movement: Normal speech and movement present Results Reviewed Results Reviewed: CHEST X-RAY ON 03/27/2023, REVIEWED, IT WAS NORMAL NO SIGNIFICANT ABNORMALITY. CBC, EIOSINOPHIL CT. 6.8 % INDICATED OF OF ALLERGIC STATE PULMONARY FUNCTION TEST ON 04/23 FVC 67%, FEV1 63%, FEV/FVC RATIO IS 68, FEF 25-75 55% WITH 23% IMPROVEMENT AFTER BRONCHODILATOR THERAPY. TLC 97 NORMAL, RESIDUAL VOLUME 153% INDICATING SOME AIR TRAPPING. DLCO 74 NORMAL Assessment & Plan Assessment & Plan (1) Encounter for screening for malignant neoplasm of lung in former smoker who quit in past 15 years with 30 pack year history or greater: Code(s): Z12.2 - Encounter for screening for malignant neoplasm of respiratory organs; Z87.891 - Personal history of nicotine dependence (2) COPD (chronic obstructive pulmonary disease): Code(s): J44.9 - Chronic obstructive pulmonary disease, unspecified (3) Allergic asthma: Code(s): J45.909 - Unspecified asthma, uncomplicated Plan: THIS GENTLEMAN DOES HAVE UNDERLYING MILD CHRONIC OBSTRUCTIVE PULMONARY DISEASE, MAY BE RELATED TO HIS PAST SMOKING. LUCKILY HE QUIT MORE THAN 20 YEARS AGO, HE HAS TENDENCY TO GET ACUTE BRONCHOSPASTIC ATTACKS ( ASTHMA ) PART OF ALLERGIC/ EIOSINOPHYLIC ASTHMA. TRIGGERS MAY INCLUDE ACUTE VIRAL INFECTION,, ENVIRONMENTAL CHANGES ARE EXPOSURE TO DUST OR HUMIDITY. AT A GOOD DISCUSSION WITH THE PATIENT AND HIS AND EXPLAINED TO THEM ABOUT MILD COPD/BRONCHIAL ASTHMA. 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 I ADVISE THAT HE MAY CUT IT DOWN TO ONCE A DAY, LONG THE HIS SYMPTOMS ARE UNDER CONTROL, AND THEN INCREASE TO B.I.D. IF HE STARTS HAVING MORE FREQUENT NEED FOR ALBUTEROL . USE ALBUTEROL HFA 1 OR 2 PUFFS Q 4-6 HOURS P.R.N., OR ALBUTEROL SOLUTION IN THE NEBULIZER Q 4-6 HOURS P.R.N. I TOLD THAT IF THE USE OF ALBUTEROL IS ONLY ONCE OR TWICE A WEEK, THEN HE WOULD NOT NEED THE MAINTENANCE REGIMEN. HE MAY GET ACUTE ATTACKS ONCE OR TWICE A YEAR, AND FOR THAT HE WOULD NEED TO USE SHORT COURSES OF PREDNISONE, LIKE 40 MG A DAY FOR 5 DAYS.. THE PATIENT AND HIS SEEM TO UNDERSTAND WELL ABOUT THE THIS ONGOING MANAGEMENT SCHEME . I WOULD BE GLAD TO SEE HIM PERIODICALLY, AND HELP IN THE MANAGEMENT. Coding Level of Care Code New Pt Level 4 (06900) Diagnoses Encounter for screening for malignant neoplasm of lung in former smoker who quit in past 15 years with 30 pack year history or greater Z12.2; Z87.891 COPD (chronic obstructive pulmonary disease) J44.9 Allergic asthma J45.909
== END 2023-05-01 09:50 | disposition home or self-care (01) ==
PROVIDERS: PCP Internal Medicine; Visit Provider Internal Medicine
DX: Z12.2 Encounter for screening for malignant neoplasm of respiratory organs (principal); Z87.891 Personal history of nicotine dependence; J44.9 Chronic obstructive pulmonary disease, unspecified
CPT/HCPCS: 99204

== ENCOUNTER → 2023-05-01 09:00 | Outpatient (BNVA) | payer MEDICARE, SELFPAY | PROVIDERS: PCP Internal Medicine; Visit Provider Internal Medicine ==

== ENCOUNTER 2023-05-13 14:48 | Outpatient (AMB) | payer MEDICARE, SELFPAY ==
--- NOTE | 2023-05-13 14:56 | MHC.OFFVIS ---
Intake Vital Signs 05/13/23 14:57 Height 5 ft 9 in Weight 200 lb 2.876 oz BMI 29.6 BP 124/56 L Blood Pressure Location Lt brachial Position Sitting Pulse 70 Intake Visit Reasons: 6 mth f/up Intake Note: 6 month follow up Night Filler Required: No Allergies codeine [CODEINE] Allergy (Intermediate, Verified 05/13/23 14:59) HIVES pseudoephedrine [From Sudafed] Allergy (Verified 05/13/23 14:59) Rash Codeine Phosphate Allergy (Unknown, Uncoded 05/13/23 14:59) nausea Medication List - Last Reconciled 05/13/23 by Brian Phelps MD albuterol sulfate 90 mcg/actuation 0 mcg inhalation albuterol sulfate mg inhalation amlodipine 5 mg PO DAILY aspirin 81 mg PO DAILY atorvastatin (Lipitor) 40 mg PO DAILY carvedilol 6.25 mg PO BID cholecalciferol (vitamin D3) 50 mcg PO DAILY cinnamon bark (Cinnamon) 500 mg PO DAILY ezetimibe 10 mg PO DAILY fluticasone propion-salmeterol 250-50 mcg/dose 1 ea inhalation BID ibuprofen 600 mg PO BID PRN lisinopril 40 mg PO DAILY metformin 2 tabs AM, 1 tab PM orally 2 times a day; omeprazole 20 mg PO DAILY HPI HPI Comments History of Present Illness Details Conner returns for follow up regarding coronary artery disease. He used to see Dr. Blanco for many years and then switched over to Dr. Thakkar briefly. Then switched to us. He has a history of coronary artery disease. Around 1996, he had acute myocardial infarction. Received fibrinolytics for treatment. Since then he was doing okay but again had chest pain in 2019 that led to cardiac catheterization. This did not show any hemodynamically significant disease. Otherwise, multiple risk factors including type 2 diabetes, hypertension, dyslipidemia, overweight. He was a smoker but nothing in the last several years. He states that he is doing okay. No specific complaints from cardiac like angina. Generally compliant with all his medications and seems to be getting along okay. also comes for the appt. [facility] Medical History (Updated 05/01/23 @ 10:03 by Sigrid Estrada MD) Allergic asthma COPD (chronic obstructive pulmonary disease) Encounter for screening for malignant neoplasm of lung in former smoker who quit in past 15 years with 30 pack year history or greater Other and unspecified hyperlipidemia Essential hypertension Type 2 diabetes mellitus with unspecified complications Atherosclerotic cardiovascular disease Hypercholesterolemia Elevated PSA Scrotal pruritus Hypogonadism in male Incomplete emptying of bladder Myocardial infarction Nocturia Prostate cancer Surgical History History of neck surgery History of tonsillectomy History of appendectomy Family History Father CVD (cardiovascular disease) Mother No problems noted. Social History Alcohol intake: current Alcohol intake frequency: 0-2 drinks per day Alcohol type: beer and hard liquor Patient Tobacco Use Status: Former Tobacco user Quit Date: 2005 Years Smoked: 14 +/- Current occupational status: retired Current occupation: Right Handed Review of Systems Const Denies weakness ENT Denies dizziness Card Denies chest pain, Denies chest pain with activity, Denies syncope, Denies rapid heart rate, Denies pedal edema, Denies edema, Denies leg edema, Denies lightheadedness, Denies palpitations, Denies dyspnea, Denies dyspnea on exertion and Denies orthopnea Resp Denies cough, Denies dyspnea and Denies dyspnea on exertion GI Denies hematochezia and Denies change in stool character Reports no additional complaints Musc Denies abnormal gait, Denies muscle weakness, Denies numbness, Denies radiating pain into limb and Denies tingling Neuro Denies abnormal gait, Denies dizziness, Denies syncope, Denies numbness, Denies tingling and Denies weakness Endo Denies palpitations Physical Exam Vital Signs: Last Vital Signs Pulse 70 05/13/23 14:57 BP 124/56 L 05/13/23 14:57 BMI result Body Mass Index 29.6 Const General: comfortable and no acute distress Orientation/consciousness: patient oriented x3 HEENT Other: Unremarkable Head: Yes normal to inspection Neck Neck: Yes normal visual inspection Chest Chest palpation & inspection: normal inspection of the chest Resp Auscultation: clear to auscultation bilaterally Cardio Palpation: normal PMI Heart sounds: S1 normal heart sound present, S2 normal heart sound present, no gallops, no murmurs and no rubs GI Palpation (GI): Soft to palpation Back/Spine/Pelvis Other: unremarkable Skin General skin exam: no rashes or lesions noted Neuro General: patient oriented x3 Extrem General: Yes normal to inspection Psych Mental Status: mental status grossly normal Office Procedures EKG Details: EKG with sinus rhythm at 70/Min; right bundle-branch block and left anterior fascicular block. Bifascicular block. 32160-[id number], Complete Assessment & Plan Assessment & Plan (1) Atherosclerotic cardiovascular disease: Code(s): I25.10 - Atherosclerotic heart disease of [place] coronary artery without angina pectoris Plan: Cardiac catheterization data reviewed from 2018. At that time, he had nonobstructive disease with no more than qppv-kg-vlrpfrzb disease. LVEDP was normal. Last echocardiogram from January 2021 with normal LVEF, 60-65%; normal diastolic function; no significant valvular pathology. Continue aspirin, beta-blockers and statins. (2) Bifascicular block: Code(s): I45.2 - Bifascicular block Plan: Can be followed periodically on EKGs. (3) Type 2 diabetes mellitus with unspecified complications: Code(s): E11.8 - Type 2 diabetes mellitus with unspecified complications Plan: On metformin. Most recent hemoglobin A1c is 7.6 %. According to patient blood sugars are running on the higher side at home. Advised to discuss that with PCP. (4) Essential hypertension: Code(s): I10 - Essential (primary) hypertension Plan: He is on carvedilol, lisinopril, amlodipine. Stable. (5) Other and unspecified hyperlipidemia: Code(s): E78.5 - Hyperlipidemia, unspecified Plan: Continue statins. Well controlled. Last LDL 70 mg/dL. Triglycerides 80 mg/dL. Plan Discussed with who came for appointment. Coding Level of Care Code Est Pt Level 4 (39316) Diagnoses Atherosclerotic cardiovascular disease I25.10 Bifascicular block I45.2 Type 2 diabetes mellitus with unspecified complications E11.8 Essential hypertension I10 Other and unspecified hyperlipidemia E78.5 CPT Codes EKG - CPT: 25574-[id number], Complete ([id number])
[2023-05-13 14:57] VITALS: BP 124/56; PULSE 70; BMI 29.6
== END 2023-05-13 15:15 | disposition home or self-care (01) ==
PROVIDERS: PCP Internal Medicine; Visit Provider Internal Medicine
DX: I25.10 Atherosclerotic heart disease of native coronary artery without angina pectoris (principal); I45.2 Bifascicular block; E11.8 Type 2 diabetes mellitus with unspecified complications; I10 Essential (primary) hypertension; E78.5 Hyperlipidemia, unspecified
CPT/HCPCS: 93010; 99214

== ENCOUNTER → 2023-05-13 14:48 | Outpatient (BNVA) | payer MEDICARE, SELFPAY | PROVIDERS: PCP Internal Medicine; Visit Provider Internal Medicine | DX: I25.10 Atherosclerotic heart disease of native coronary artery without angina pectoris (principal); I45.2 Bifascicular block; I10 Essential (primary) hypertension; E11.8 Type 2 diabetes mellitus with unspecified complications; E78.5 Hyperlipidemia, unspecified; Z79.84 Long term (current) use of oral hypoglycemic drugs; Z79.899 Other long term (current) drug therapy | CPT/HCPCS: 93005; 99212 ==

== ENCOUNTER 2023-05-14 12:16 | Outpatient (REF) | payer MEDICARE, SELFPAY ==
[2023-05-14 14:23] LABS: Prostate Specific Antigen < 0.10 ng/mL (<0.05-4.0)
== END 2023-05-14 12:17 | disposition home or self-care (01) ==
LOC: HO.HMGCLDS 12:16
PROVIDERS: PCP Internal Medicine; Visit Provider Urology
DX: Z12.5 Encounter for screening for malignant neoplasm of prostate (principal); C61 Malignant neoplasm of prostate
CPT/HCPCS: 36415; 84153

== ENCOUNTER 2023-06-05 10:22 | Outpatient (AMB) | payer MEDICARE, SELFPAY ==
--- NOTE | 2023-06-05 10:22 | MHC.OFFVIS ---
Intake Intake Visit Reasons: 6M PSA/Prostate Cancer(set) Intake Note: TELEHEALTH CALL Allergies codeine [CODEINE] Allergy (Intermediate, Verified 06/05/23 10:24) HIVES pseudoephedrine [From Sudafed] Allergy (Verified 06/05/23 10:24) Rash Codeine Phosphate Allergy (Unknown, Uncoded 06/05/23 10:24) nausea Medication List - Last Reconciled 06/05/23 by Av Bass MD albuterol sulfate 90 mcg/actuation 0 mcg inhalation albuterol sulfate mg inhalation amlodipine 5 mg PO DAILY aspirin 81 mg PO DAILY atorvastatin (Lipitor) 40 mg PO DAILY carvedilol 6.25 mg PO BID cholecalciferol (vitamin D3) 50 mcg PO DAILY cinnamon bark (Cinnamon) 500 mg PO DAILY ezetimibe 10 mg PO DAILY fluticasone propion-salmeterol 250-50 mcg/dose 1 ea inhalation BID ibuprofen 600 mg PO BID PRN lisinopril 40 mg PO DAILY metformin 2 tabs AM, 1 tab PM orally 2 times a day; omeprazole 20 mg PO DAILY HPI HPI Comments History of Present Illness Details Conner Crews is a very pleasant male. He is a patient of Dr. Cordova. He is seen for the following urologic conditions - prostate cancer Telemedicine Evaluation 15 min Consultation Doximity Acosta Video attempted 6m f/u 7 year post therapy Concurrent diagnoses include diabetes PSA <0.1, 11/21 <0.1, 05/24 < 0.10 HbA1c 8.5 down to 7.6 On baseline metformin Encouraged continued carb control and maintain activity level Prostate cancer: Grade Group 3 initial therapy external beam radiation with hormones 2015 Good control continue surveillance Prostate cancer was diagnosed 10/2015. Diagnosis was reached by needle biopsy, for elevated PSA. The Carol grade is 4+3 1/12 cores 60%, , 3+3 2/12 cores < 10%. TNM Classification of Malignant Tumours (TNM) T1c. The D'Carine (NCCN) risk category is Intermediate Risk (PSA 10-20, Gl 7, T2) Initial therapy included Primary treatment, External beam radiation with short term hormonal ablation - Completed June 2016 Dr Baxter 7600 Gy - Finasteride + bicalutamide Recent labs included a PSA (prostate-specific antigen) 10/2015 4.1, 09/17 < 0.1 02/15 a PSA (prostate-specific antigen), < 0.1, a testosterone 124, 05/18 , a PSA (prostate-specific antigen), < 0.1, , a testosterone 177, 08/17 , a PSA (prostate-specific antigen), < 0.1 12/17 , a PSA (prostate-specific antigen), < 0.1, , a testosterone 224, 04/18 , a PSA (prostate-specific antigen) < 0.1 10/20 PSA < 0.05, T 241, 04/19 < 0.1, T 220, 10/21 < 0.1, T 275, 04/20 PSA < 0.05, 04/21 <0.05, 11/20 <0.05, 05/23 <0.05 Recent imaging included an MRI (magnetic resonance imaging) December 2015 - 30 gram gland, no evidence for extracapsular disease, . Therapeutic plan: Continue with surveillance [facility] Medical History Allergic asthma COPD (chronic obstructive pulmonary disease) Encounter for screening for malignant neoplasm of lung in former smoker who quit in past 15 years with 30 pack year history or greater Other and unspecified hyperlipidemia Essential hypertension Type 2 diabetes mellitus with unspecified complications Atherosclerotic cardiovascular disease Hypercholesterolemia Elevated PSA Scrotal pruritus Hypogonadism in male Incomplete emptying of bladder Myocardial infarction Nocturia Prostate cancer Surgical History History of neck surgery History of tonsillectomy History of appendectomy Family History Father CVD (cardiovascular disease) Mother No problems noted. Social History Alcohol intake: current Alcohol intake frequency: 0-2 drinks per day Alcohol type: beer and hard liquor Patient Tobacco Use Status: Former Tobacco user Quit Date: 2005 Years Smoked: 14 +/- Current occupational status: retired Current occupation: Right Handed Review of Systems Const All systems reviewed & are unremarkable except as noted in HPI and below Reports no additional complaints Resp Reports no additional complaints GI Reports no additional complaints Reports as per HPI Musc Reports no additional complaints Physical Exam Telemedicine evaluation Appropriate responses Regular breathing rate and rhythm HEENT Head: Yes normal to inspection Ears: hearing grossly normal bilaterally Eyes General: appearance normal, both eyes and all related structures Neck Neck: Yes normal visual inspection Chest Chest palpation & inspection: normal inspection of the chest Resp Effort & Inspection: normal respiratory effort and able to speak in complete sentences Assessment & Plan Assessment & Plan (1) Prostate cancer: Code(s): C61 - Malignant neoplasm of prostate Plan Continue 6 month follow-up PSA Orders: Orders Prostate Specific Antigen 6 Months C61 - Malignant neoplasm of prostate Patient Instructions: Imaging studies, laboratory and physical exam results were discussed and reviewed in detail. No major barriers to patient understanding were identified. An opportunity to ask questions regarding the treatment plan was provided. All questions were answered. The patient expressed understanding and agreement with the above treatment plan. The patient is aware they should contact our office by phone for worsening of their current condition or the appearance of new urologic symptoms. Compliance is encouraged with any medications and followup testing that is ordered. It is a privilege to participate in the urologic care of your patient. If you have any questions or concerns regarding treatment for the above conditions, or other urologic issues, please do not hesitate to contact me. The office telephone contact is [phone]. This note is constructed using voice recognition software. While every effort has been made to ensure accuracy heavy machinery assembler errors may have been included. Yours sincerely, Dr Av Bass MD, [facility] - Urology Providers of Expert, Compassionate Care for the Genitourinary System Telehealth Telehealth Location of provider rendering services: practice address Location of patient: address on file Patient Identification confirmed using: Name, : Yes Telehealth method: video Patient verbally consented to treatment: Yes Patient verbally consented to billing insurance company: Yes Patient informed of any privacy concerns related to visit: Yes Coding Level of Care Code Tele Est Pt Level 3 (64101) Diagnoses Prostate cancer C61
== END 2023-06-05 10:54 | disposition home or self-care (01) ==
LOC: HO.HUSH 10:22
PROVIDERS: PCP Internal Medicine; Visit Provider Urology
DX: C61 Malignant neoplasm of prostate (principal)
CPT/HCPCS: 99213

== ENCOUNTER → 2023-06-05 10:22 | Outpatient (BNVA) | payer MEDICARE, SELFPAY | PROVIDERS: PCP Internal Medicine; Visit Provider Urology ==

== ENCOUNTER 2023-06-18 08:23 | Outpatient (REF) | payer MEDICARE, SELFPAY ==
[2023-06-18 11:15] LABS: MANUAL DIFF FLAG NO
[2023-06-18 11:27] LABS: Basophils Percent Auto 0.6 % (0-2); Eosinophils Absolute Auto 0.3 X10*3/uL (0.0-0.4); Eosinophils Percent Auto 4.9 % (0-4); Hemoglobin 12.9 g/dl (14.0-18.0); Imm Gran Abs Auto 0.03 X10*3/uL (0.00-0.03); Imm Gran Pct Auto 0.4 % (0.0-0.4); Lymphocytes Absolute Auto 1.8 X10*3/uL (1.2-4.9); Lymphocytes Percent Auto 26.4 % (20-40); Mean Corpuscular HGB Conc 31.5 g/dl (31.0-36.0); Mean Corpuscular Hemoglobin 26.3 pg (27.0-33.0); Mean Corpuscular Volume 83.5 fL (80.0-98.0); Mean Platelet Volume 9.8 fL (9.4-12.4); Monocytes Absolute Auto 0.6 X10*3/uL (0.1-1.2); Monocytes Percent Auto 9.6 % (2-11); Neutrophils Absolute Auto 3.9 x10*3/uL (2.0-8.3); Neutrophils Percent Auto 58.1 % (45-73); Platelet Count 233 X10*3/uL (160-400); Red Blood Count 4.91 X10*6/uL (4.60-5.80); Red Cell Distribution Width 13.2 % (11.0-16.0); White Blood Count 6.7 X10*3/uL (4.8-10.8)
[2023-06-18 11:31] LABS: Estimated Average Glucose 200 mg/dL; Hemoglobin A1c % 8.6 % (<6.0)
[2023-06-18 11:43] LABS: Alanine Aminotransferase 27 U/L (0-40); Albumin Level 4.2 g/dL (3.5-5.0); Alkaline Phosphatase 72 U/L (39-117); Anion Gap 13 (12-20); Aspartate Amino Transferase 18 U/L (5-37); Bilirubin Total 0.7 mg/dL (0.0-1.0); Blood Urea Nitrogen 14 mg/dL (9-16); Calcium 9.3 mg/dL (8.4-10.2); Carbon Dioxide 25 mmol/L (22-29); Chloride 104 mmol/L (96-108); Cholesterol 126 mg/dL (<200); Estimated Glomerular Filt Rate > 60; Glucose Fasting 186 mg/dL (60-99); HDL Cholesterol 43 mg/dL (>40); LDL Cholesterol Calculated 67 mg/dL (<100); Potassium 4.1 mmol/L (3.3-5.1); Sodium 138 mmol/L (135-145); Total Protein 6.6 g/dL (6.5-8.0); Triglycerides 83 mg/dL (<150)
[2023-06-18 11:52] LABS: Prostate Specific Antigen < 0.10 ng/mL (<0.05-4.0)
[2023-06-18 12:09] LABS: Creatinine Urine 79.88 mg/dL; Microalbum/Creatinine Ratio Ur 27.5 ug/mg cr (<30)
== END 2023-06-18 08:24 | disposition home or self-care (01) ==
LOC: HO.HMGCLDS 08:23
PROVIDERS: PCP Internal Medicine; Visit Provider Internal Medicine
DX: J44.9 Chronic obstructive pulmonary disease, unspecified (principal); I25.10 Atherosclerotic heart disease of native coronary artery without angina pectoris; E11.9 Type 2 diabetes mellitus without complications; E78.00 Pure hypercholesterolemia, unspecified; K21.9 Gastro-esophageal reflux disease without esophagitis; R35.1 Nocturia; Z12.5 Encounter for screening for malignant neoplasm of prostate
CPT/HCPCS: 36415; 80053; 80061; 82043; 82570; 83036; 84153; 85025

== ENCOUNTER 2023-10-07 12:53 | Outpatient (AMB) | payer MEDICARE, SELFPAY ==
[2023-10-07 14:20] VITALS: BP 140/66; PULSE 69; TEMP 36.2; O2SAT 96; BMI 29.8
--- NOTE | 2023-10-07 14:20 | MHC.OFFWIV ---
Intake Vital Signs 10/07/23 14:20 Height 5 ft 9 in Weight 202 lb BMI 29.8 BP 140/66 H Blood Pressure Location Lt brachial Position Sitting Pulse 69 Pulse Source Pulse Oximeter Temp 97.2 F Temp Source Temporal Artery Scan Pulse Oximetry (%) 96 Intake Visit Reasons: EST/ears blocked(lobby) Intake Note: pt is here today for ear blocked started 1 month ago Patient Tobacco Use Status: Former Tobacco user Quit Date: 2005 Allergies codeine [CODEINE] Allergy (Intermediate, Verified 10/07/23 14:21) HIVES pseudoephedrine [From Sudafed] Allergy (Verified 10/07/23 14:21) Rash Codeine Phosphate Allergy (Unknown, Uncoded 06/05/23 10:24) nausea Do you need a note to return to daycare/school/sports/work: No HPI HPI Comments History of Present Illness Details 78 yr old male presents to the office for a sick visit. Patient is reporting symptoms of ringing in the ears for the past 4 weeks. He has had ear surgeries in the past. Feels his left ear is blocked with decreased hearing. [facility] Medical History Allergic asthma COPD (chronic obstructive pulmonary disease) Encounter for screening for malignant neoplasm of lung in former smoker who quit in past 15 years with 30 pack year history or greater Other and unspecified hyperlipidemia Essential hypertension Type 2 diabetes mellitus with unspecified complications Atherosclerotic cardiovascular disease Hypercholesterolemia Elevated PSA Scrotal pruritus Hypogonadism in male Incomplete emptying of bladder Myocardial infarction Nocturia Prostate cancer Surgical History History of neck surgery History of tonsillectomy History of appendectomy Family History Father CVD (cardiovascular disease) Mother No problems noted. Social History Alcohol intake: current Alcohol intake frequency: 0-2 drinks per day Alcohol type: beer and hard liquor Patient Tobacco Use Status: Former Tobacco user Quit Date: 2005 Years Smoked: 14 +/- Current occupational status: retired Current occupation: Right Handed Physical Exam Vital Signs: Last Vital Signs Temp 97.2 F 10/07/23 14:20 Pulse 69 10/07/23 14:20 BP 140/66 H 10/07/23 14:20 Pulse Ox 96 10/07/23 14:20 BMI result Body Mass Index 29.8 Const General: cooperative and healthy appearing Nutritional Appearance: well nourished Orientation/consciousness: patient oriented x3 Limitations: no limitations HEENT Other: Left ear: Wax and saw dust visualized. TM not seen. Right ear; no wax, TM is well visualized. Head: Yes normal to inspection Eyes General: appearance normal, both eyes and all related structures Neck Neck: Yes normal visual inspection Chest Chest palpation & inspection: normal palpation of entire chest wall Resp Effort & Inspection: normal respiratory effort Neuro General: patient oriented x3 Office Procedures Cerumen Removal From which ear canal was the cerumen removed: bilateral Removal: otoscope w/curette Notes: patient tolerated procedure well [id number] Wax Removal by Spoon/Curette Assessment & Plan Assessment & Plan (1) Tinnitus: Code(s): H93.19 - Tinnitus, unspecified ear Plan: Patient tolerated the cerumen removal well. Some improvement in symptoms. If Tinnitus symptoms persist, need to follow up with ENT. Orders: Orders AMB Cerumen Removal Today H61.23 - Impacted cerumen, bilateral Coding Level of Care Code Est Pt Level 3 (06924) Diagnoses Tinnitus H93.19 CPT Codes Office Procedure - CPT: 16717-[id number] Wax Removal by Spoon/Curette ([id number])
== END 2023-10-07 15:34 | disposition home or self-care (01) ==
PROVIDERS: PCP Internal Medicine; Visit Provider Internal Medicine
DX: H93.12 Tinnitus, left ear (principal); H61.23 Impacted cerumen, bilateral
CPT/HCPCS: 69210; 99213

== ENCOUNTER 2023-11-17 12:42 | Outpatient (REF) | payer MEDICARE, SELFPAY ==
[2023-11-17 16:05] LABS: MANUAL DIFF FLAG NO
[2023-11-17 16:12] LABS: Basophils Percent Auto 0.3 % (0-2); Eosinophils Absolute Auto 0.3 X10*3/uL (0.0-0.4); Eosinophils Percent Auto 3.5 % (0-4); Hematocrit 43.4 % (42.0-52.0); Hemoglobin 13.7 g/dl (14.0-18.0); Imm Gran Abs Auto 0.02 X10*3/uL (0.00-0.03); Imm Gran Pct Auto 0.3 % (0.0-0.4); Lymphocytes Absolute Auto 2.1 X10*3/uL (1.2-4.9); Lymphocytes Percent Auto 28.6 % (20-40); Mean Corpuscular HGB Conc 31.6 g/dl (31.0-36.0); Mean Corpuscular Hemoglobin 26.3 pg (27.0-33.0); Mean Corpuscular Volume 83.3 fL (80.0-98.0); Mean Platelet Volume 9.8 fL (9.4-12.4); Monocytes Absolute Auto 0.6 X10*3/uL (0.1-1.2); Monocytes Percent Auto 8.9 % (2-11); Neutrophils Absolute Auto 4.2 x10*3/uL (2.0-8.3); Neutrophils Percent Auto 58.4 % (45-73); Platelet Count 328 X10*3/uL (160-400); Red Blood Count 5.21 X10*6/uL (4.60-5.80); Red Cell Distribution Width 13.1 % (11.0-16.0); White Blood Count 7.2 X10*3/uL (4.8-10.8)
[2023-11-17 16:22] LABS: Estimated Average Glucose 212 mg/dL
[2023-11-17 16:35] LABS: Alanine Aminotransferase 29 U/L (0-40); Alkaline Phosphatase 81 U/L (39-117); Anion Gap 13 (12-20); Aspartate Amino Transferase 18 U/L (5-37); Bilirubin Total 0.4 mg/dL (0.0-1.0); Blood Urea Nitrogen 10 mg/dL (9-16); Calcium 9.5 mg/dL (8.4-10.2); Carbon Dioxide 26 mmol/L (22-29); Chloride 103 mmol/L (96-108); Estimated Glomerular Filt Rate > 60; Glucose Random 194 mg/dL (60-115); Sodium 137 mmol/L (135-145)
[2023-11-17 16:47] LABS: Creatinine Urine 48.23 mg/dL; Microalbum/Creatinine Ratio Ur 43.5 ug/mg cr (<30)
[2023-11-17 16:56] LABS: Prostate Specific Antigen < 0.10 ng/mL (<0.05-4.0)
== END 2023-11-17 12:43 | disposition home or self-care (01) ==
LOC: HO.HMGCLDS 12:42
PROVIDERS: PCP Internal Medicine; Referring Provider Urology; Visit Provider Internal Medicine
DX: Z12.5 Encounter for screening for malignant neoplasm of prostate (principal); E11.9 Type 2 diabetes mellitus without complications; I25.10 Atherosclerotic heart disease of native coronary artery without angina pectoris; I10 Essential (primary) hypertension; J44.9 Chronic obstructive pulmonary disease, unspecified; C61 Malignant neoplasm of prostate
CPT/HCPCS: 36415; 80053; 82043; 82570; 83036; 84153; 85025

== ENCOUNTER 2023-12-04 09:39 | Outpatient (AMB) | payer MEDICARE, SELFPAY ==
--- NOTE | 2023-12-04 10:11 | A.OFFVIS_ITS ---
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 Gas Metal Arc Required: No Accompanied by: Self / Same As Patient Allergies codeine [CODEINE] Allergy (Intermediate, Verified 12/04/23 10:17) HIVES pseudoephedrine [From Sudafed] Allergy (Verified 12/04/23 10:17) Rash Codeine Phosphate Allergy (Unknown, Uncoded 12/04/23 10:17) nausea Medication List - Last Reconciled 12/04/23 by Av Bass MD albuterol sulfate 90 mcg/actuation 0 mcg inhalation albuterol sulfate mg inhalation amlodipine 5 mg PO DAILY aspirin 81 mg PO DAILY atorvastatin (Lipitor) 40 mg PO DAILY carvedilol 6.25 mg PO BID cholecalciferol (vitamin D3) 50 mcg PO DAILY cinnamon bark (Cinnamon) 500 mg PO DAILY dapagliflozin propanediol (Farxiga) PO ezetimibe 10 mg PO DAILY fluticasone propion-salmeterol 250-50 mcg/dose 1 ea inhalation BID ibuprofen 600 mg PO BID PRN lisinopril 40 mg PO DAILY metformin 2 tabs AM, 1 tab PM orally 2 times a day; omeprazole 20 mg PO DAILY HPI HPI Comments History of Present Illness Details Conner Crews is a very pleasant male. He is a patient of Dr. Cordova. He is seen for the following urologic conditions - prostate cancer Telemedicine Evaluation 15 min Consultation Doximity Acosta Video attempted PSA down HBA1c has increased PSA <0.1, 11/21 <0.1, 05/24 < 0.10, 11/22 <0.1 May move appointment to yearly Prostate cancer: Grade Group 3 initial therapy external beam radiation with hormones 2015 Good control continue surveillance Prostate cancer was diagnosed 10/2015. Diagnosis was reached by needle biopsy, for elevated PSA. The Carol grade is 4+3 09/12 cores 60%, , 3+3 10/13 cores < 10%. TNM Classification of Malignant Tumours (TNM) T1c. The D'Carine (NCCN) risk category is Intermediate Risk (PSA 10-20, Gl 7, T2) Initial therapy included Primary treatment, External beam radiation with short term hormonal ablation - Completed June 2016 Dr Baxter 7600 Gy - Finasteride + bicalutamide Recent labs included a PSA (prostate-specific antigen) 10/2015 4.1, 09/17 < 0.1 02/15 a PSA (prostate-specific antigen), < 0.1, a testosterone 124, 05/18 , a PSA (prostate-specific antigen), < 0.1, , a testosterone 177, 08/17 , a PSA (prostate-specific antigen), < 0.1 12/17 , a PSA (prostate-specific antigen), < 0.1, , a testosterone 224, 04/18 , a PSA (prostate-specific antigen) < 0.1 10/20 PSA < 0.05, T 241, 04/19 < 0.1, T 220, 10/21 < 0.1, T 275, 04/20 PSA < 0.05, 04/21 <0.05, 11/20 <0.05, 05/23 <0.05 Recent imaging included an MRI (magnetic resonance imaging) December 2015 - 30 gram gland, no evidence for extracapsular disease, . Therapeutic plan: Continue with surveillance [facility] Medical History Allergic asthma COPD (chronic obstructive pulmonary disease) Encounter for screening for malignant neoplasm of lung in former smoker who quit in past 15 years with 30 pack year history or greater Other and unspecified hyperlipidemia Essential hypertension Type 2 diabetes mellitus with unspecified complications Atherosclerotic cardiovascular disease Hypercholesterolemia Elevated PSA Scrotal pruritus Hypogonadism in male Incomplete emptying of bladder Myocardial infarction Nocturia Prostate cancer Surgical History History of neck surgery History of tonsillectomy History of appendectomy Family History Father CVD (cardiovascular disease) Mother No problems noted. Social History Alcohol intake: current Alcohol intake frequency: 0-2 drinks per day Alcohol type: beer and hard liquor Patient Tobacco Use Status: Former Tobacco user Quit Date: 2005 Years Smoked: 14 +/- Current occupational status: retired Current occupation: Right Handed Review of Systems Const All systems reviewed & are unremarkable except as noted in HPI and below Reports no additional complaints Resp Reports no additional complaints GI Reports no additional complaints Reports as per HPI Musc Reports no additional complaints Physical Exam Telemedicine evaluation Appropriate responses Regular breathing rate and rhythm HEENT Head: Yes normal to inspection Ears: hearing grossly normal bilaterally Eyes General: appearance normal, both eyes and all related structures Neck Neck: Yes normal visual inspection Chest Chest palpation & inspection: normal inspection of the chest Resp Effort & Inspection: normal respiratory effort and able to speak in complete sentences Assessment & Plan Assessment & Plan (1) Prostate cancer: Code(s): C61 - Malignant neoplasm of prostate Plan 12m f/u PSA Orders: Orders Prostate Specific Antigen 364 Days C61 - Malignant neoplasm of prostate Patient Instructions: Imaging studies, laboratory and physical exam results were discussed and reviewed in detail. No major barriers to patient understanding were identified. An opportunity to ask questions regarding the treatment plan was provided. All questions were answered. The patient expressed understanding and agreement with the above treatment plan. The patient is aware they should contact our office by phone for worsening of their current condition or the appearance of new urologic symptoms. Compliance is encouraged with any medications and followup testing that is ordered. It is a privilege to participate in the urologic care of your patient. If you have any questions or concerns regarding treatment for the above conditions, or other urologic issues, please do not hesitate to contact me. The office telephone contact is [phone]. This note is constructed using voice recognition software. While every effort has been made to ensure accuracy postal service clerk errors may have been included. Yours sincerely, Dr Av Bass MD, [facility] - Urology Providers of Expert, Compassionate Care for the Genitourinary System Telehealth Telehealth Location of provider rendering services: practice address Location of patient: address on file Patient Identification confirmed using: Name, : Yes Telehealth method: voice only Patient verbally consented to treatment: Yes Patient verbally consented to billing insurance company: Yes Patient informed of any privacy concerns related to visit: Yes Coding Level of Care Code Tele Est Pt Level 3 (92971) Diagnoses Prostate cancer C61
== END 2023-12-04 11:04 | disposition left against medical advice (07) ==
PROVIDERS: PCP Internal Medicine; Visit Provider Urology
DX: C61 Malignant neoplasm of prostate (principal)
CPT/HCPCS: 99442

== ENCOUNTER → 2023-12-04 09:39 | Outpatient (BNVA) | payer MEDICARE, SELFPAY | PROVIDERS: PCP Internal Medicine; Visit Provider Urology ==

== ENCOUNTER 2024-01-07 08:30 | Outpatient (REF) | payer MEDICARE, SELFPAY ==
[2024-01-07 10:58] LABS: Estimated Average Glucose 189 mg/dL; Hemoglobin A1c % 8.2 % (<6.0)
[2024-01-07 11:07] LABS: Anion Gap 14 (12-20); Blood Urea Nitrogen 19 mg/dL (9-16); Calcium 9.6 mg/dL (8.4-10.2); Carbon Dioxide 22 mmol/L (22-29); Chloride 107 mmol/L (96-108); Estimated Glomerular Filt Rate > 60; Glucose Random 226 mg/dL (60-115); Potassium 4.1 mmol/L (3.3-5.1); Sodium 139 mmol/L (135-145)
== END 2024-01-07 08:31 | disposition home or self-care (01) ==
LOC: HO.HMGCLDS 08:30
PROVIDERS: PCP Internal Medicine; Visit Provider Internal Medicine
DX: E11.9 Type 2 diabetes mellitus without complications (principal)
CPT/HCPCS: 36415; 80048; 83036

== ENCOUNTER 2024-01-22 10:53 | Outpatient (AMB) | payer MEDICARE, SELFPAY ==
--- NOTE | 2024-01-22 10:55 | A.OFFVIS_ITS ---
Vital Signs 01/22/24 11:05 Height 5 ft 9 in Weight 202 lb BMI 29.8 Intake Visit Reasons: OV-RT.shoulder pain, last inj 12/30/22 Intake Note: Conner is a 78 year old male who presents today for a follow up of his right shoulder. Last Injection done 12/30/22. Patient reports last injection provided him with relief for almost a year. His pain returned about 4 weeks ago and is r equesting to repeat injection. Allergies codeine [CODEINE] Allergy (Intermediate, Verified 12/04/23 10:17) HIVES pseudoephedrine [From Sudafed] Allergy (Verified 12/04/23 10:17) Rash Codeine Phosphate Allergy (Unknown, Uncoded 12/04/23 10:17) nausea Medication List - Last Reconciled 01/22/24 by Chavez Corona PA-C albuterol sulfate 90 mcg/actuation 0 mcg inhalation albuterol sulfate mg inhalation amlodipine 5 mg PO DAILY aspirin 81 mg PO DAILY atorvastatin (Lipitor) 40 mg PO DAILY carvedilol 6.25 mg PO BID cholecalciferol (vitamin D3) 50 mcg PO DAILY cinnamon bark (Cinnamon) 500 mg PO DAILY dapagliflozin propanediol (Farxiga) PO ezetimibe 10 mg PO DAILY fluticasone propion-salmeterol 250-50 mcg/dose 1 ea inhalation BID ibuprofen 600 mg PO BID PRN lisinopril 40 mg PO DAILY metformin 2 tabs AM, 1 tab PM orally 2 times a day; omeprazole 20 mg PO DAILY HPI HPI OV-RT.shoulder pain, last inj 12/30/22: Details: 78-year-old male who returns to the office today for a follow-up of right shoulder pain. He has his last injection on 12/30/22 that provided him relief for almost an year. His pain returned about 4 weeks ago. He would like to repeat the injection. [facility] Medical History Allergic asthma COPD (chronic obstructive pulmonary disease) Encounter for screening for malignant neoplasm of lung in former smoker who quit in past 15 years with 30 pack year history or greater Other and unspecified hyperlipidemia Essential hypertension Type 2 diabetes mellitus with unspecified complications Atherosclerotic cardiovascular disease Hypercholesterolemia Elevated PSA Scrotal pruritus Hypogonadism in male Incomplete emptying of bladder Myocardial infarction Nocturia Prostate cancer Surgical History History of neck surgery History of tonsillectomy History of appendectomy Family History Father CVD (cardiovascular disease) Mother No problems noted. Social History Alcohol intake: current Alcohol intake frequency: 0-2 drinks per day Alcohol type: beer and hard liquor Patient Tobacco Use Status: Former Tobacco user Quit Date: 2005 Years Smoked: 14 +/- Current occupational status: retired Current occupation: Right Handed Review of Systems Const All systems reviewed & are unremarkable except as noted in HPI and below Physical Exam Vital Signs: BMI result Body Mass Index 29.8 Extrem Other: Right shoulder normal to inspection, full rom with pain over the impingement arc. 01/03 RTC testing. Office Procedures Joint Injection/Drain Joint Injection/Drain Primary Site: right shoulder Prep: site was prepped using aseptic technique, ethochloride spray was applied and injection warnings given Injected: 40 mg of, DepoMedrol, with 8 mL of, 1% plain lidocaine and in the subcromial space Approach Used: posterolateral Procedure: The patient tolerated the procedure well and there was some relief with the local anesthesia Coding 15604 - Glenohumeral/Tronchanteric Bursa/Intraarticular Procedure code (CPT) selection complete Assessment & Plan Assessment & Plan (1) Rotator cuff impingement syndrome of right shoulder: Code(s): M75.41 - Impingement syndrome of right shoulder Category: Medical (2) Arthrosis of right acromioclavicular joint: Code(s): M19.011 - Primary osteoarthritis, right shoulder Category: Medical Plan We discussed options today which include steroid injection. They did consent to move forward with the right shoulder injection, which was tolerated well. I recommended rest, ice and elevation and OTC anti-inflammatories PRN for discomfort. If symptoms persist or worsens over the next 6-8 weeks, patient will contact the office, otherwise follow-up as needed. Patient Instructions: Scribed for Chavez Corona PA-C, by Walker Juan medical anthropologist, on 01/22/2024 at 11:15 AM EST.? I, Chavez Corona PA-C, have personally reviewed and agree with the information entered by the scribe. Coding Level of Care Code Est Pt Level 3 (40467) Diagnoses Rotator cuff impingement syndrome of right shoulder M75.41 Arthrosis of right acromioclavicular joint M19.011 CPT Codes Coding - Joint 7: 00869 - Glenohumeral/Tronchanteric Bursa/Intraarticular ([id number])
[2024-01-22 11:05] VITALS: BMI 29.8
== END 2024-01-22 11:53 | disposition home or self-care (01) ==
PROVIDERS: PCP Internal Medicine; Visit Provider Physician Assistant
DX: M75.41 Impingement syndrome of right shoulder (principal); M19.011 Primary osteoarthritis, right shoulder
CPT/HCPCS: 20610

== ENCOUNTER → 2024-01-22 10:53 | Outpatient (BNVA) | payer MEDICARE, SELFPAY | PROVIDERS: PCP Internal Medicine; Visit Provider Physician Assistant | DX: M75.41 Impingement syndrome of right shoulder (principal); M19.011 Primary osteoarthritis, right shoulder | CPT/HCPCS: 20610; J1010 ==

== ENCOUNTER 2024-04-06 11:41 | Outpatient (REF) | payer MEDICARE, SELFPAY ==
[2024-04-06 13:21] LABS: MANUAL DIFF FLAG NO
[2024-04-06 13:50] LABS: Basophils Percent Auto 0.6 % (0-2); Eosinophils Absolute Auto 0.3 X10*3/uL (0.0-0.4); Eosinophils Percent Auto 4.6 % (0-4); Hematocrit 42.5 % (42.0-52.0); Hemoglobin 13.7 g/dl (14.0-18.0); Imm Gran Abs Auto 0.01 X10*3/uL (0.00-0.03); Imm Gran Pct Auto 0.2 % (0.0-0.4); Lymphocytes Percent Auto 30.3 % (20-40); Mean Corpuscular HGB Conc 32.2 g/dl (31.0-36.0); Mean Corpuscular Hemoglobin 26.6 pg (27.0-33.0); Mean Corpuscular Volume 82.5 fL (80.0-98.0); Mean Platelet Volume 9.9 fL (9.4-12.4); Monocytes Absolute Auto 0.5 X10*3/uL (0.1-1.2); Monocytes Percent Auto 7.4 % (2-11); Neutrophils Absolute Auto 3.7 x10*3/uL (2.0-8.3); Neutrophils Percent Auto 56.9 % (45-73); Platelet Count 239 X10*3/uL (160-400); Red Blood Count 5.15 X10*6/uL (4.60-5.80); Red Cell Distribution Width 14.1 % (11.0-16.0); White Blood Count 6.5 X10*3/uL (4.8-10.8)
[2024-04-06 13:57] LABS: Alanine Aminotransferase 19 U/L (0-40); Albumin Level 4.2 g/dL (3.5-5.0); Alkaline Phosphatase 61 U/L (39-117); Anion Gap 14 (12-20); Aspartate Amino Transferase 17 U/L (5-37); Bilirubin Total 0.6 mg/dL (0.0-1.0); Blood Urea Nitrogen 14 mg/dL (9-16); Calcium 9.2 mg/dL (8.4-10.2); Carbon Dioxide 23 mmol/L (22-29); Chloride 107 mmol/L (96-108); Estimated Glomerular Filt Rate > 60; Glucose Random 182 mg/dL (60-115); Potassium 4.2 mmol/L (3.3-5.1); Sodium 140 mmol/L (135-145); Total Protein 6.7 g/dL (6.5-8.0)
[2024-04-06 14:04] LABS: Estimated Average Glucose 163 mg/dL; Hemoglobin A1c % 7.3 % (<6.0)
[2024-04-06 14:11] LABS: Creatinine Urine 22.13 mg/dL; Microalbumin Urine < 5.0 mg/L
== END 2024-04-06 11:42 | disposition home or self-care (01) ==
LOC: HO.HMGCLDS 11:41
PROVIDERS: PCP Internal Medicine; Visit Provider Internal Medicine
DX: E11.9 Type 2 diabetes mellitus without complications (principal); I10 Essential (primary) hypertension; I25.10 Atherosclerotic heart disease of native coronary artery without angina pectoris; K57.90 Diverticulosis of intestine, part unspecified, without perforation or abscess without bleeding
CPT/HCPCS: 36415; 80053; 82043; 82570; 83036; 85025

== ENCOUNTER 2024-04-08 09:50 | Outpatient (REF) | payer MEDICARE, SELFPAY ==
[2024-04-08 11:33] LABS: C Reactive Protein < 0.10 mg/dL (< or = 0.50)
[2024-04-08 11:55] LABS: Vitamin B12 311 pg/mL (200-900)
[2024-04-09 09:13] LABS: Lyme Abs Screen <0.90 index
== END 2024-04-08 09:51 | disposition home or self-care (01) ==
LOC: HO.10HDL 09:50
PROVIDERS: Visit Provider Internal Medicine
DX: M79.10 Myalgia, unspecified site (principal)
CPT/HCPCS: 36415; 82550; 82607; 86140; 86617; 86618

== ENCOUNTER 2024-05-13 12:10 | Outpatient (AMB) | payer MEDICARE, SELFPAY ==
[2024-05-13 12:30] VITALS: BP 134/60; PULSE 58; BMI 28.0
--- NOTE | 2024-05-13 12:30 | A.OFFVIS_ITS ---
Vital Signs 05/13/24 12:30 Height 5 ft 9 in Weight 189 lb 9.561 oz BMI 28.0 BP 134/60 Blood Pressure Location Lt brachial Position Sitting Pulse 58 Intake Visit Reasons: 1 year followup w/ekg [employer] Associate Required: No Accompanied by: Self / Same As Patient Allergies codeine [CODEINE] Allergy (Intermediate, Verified 12/04/23 10:17) HIVES pseudoephedrine [From Sudafed] Allergy (Verified 12/04/23 10:17) Rash Codeine Phosphate Allergy (Unknown, Uncoded 12/04/23 10:17) nausea Medication List - Last Reconciled 05/13/24 by Brian Phelps MD albuterol sulfate 90 mcg/actuation 0 mcg inhalation albuterol sulfate mg inhalation amlodipine 5 mg PO DAILY aspirin 81 mg PO DAILY atorvastatin (Lipitor) 40 mg PO DAILY carvedilol 6.25 mg PO BID cholecalciferol (vitamin D3) 50 mcg PO DAILY cinnamon bark (Cinnamon) 500 mg PO DAILY dapagliflozin propanediol (Farxiga) PO ezetimibe 10 mg PO DAILY fluticasone propion-salmeterol 250-50 mcg/dose 1 ea inhalation BID ibuprofen 600 mg PO BID PRN lisinopril 40 mg PO DAILY metformin 2 tabs AM, 1 tab PM orally 2 times a day; omeprazole 20 mg PO DAILY HPI Comments Details: Conner returns for follow up regarding coronary artery disease. He used to see Dr. Blanco for many years and then switched over to Dr. Thakkar briefly. Then switched to us. He has a history of coronary artery disease. Around 1996, he had acute myocardial infarction. Received fibrinolytics for treatment. Since then he was doing okay but again had chest pain in 2019 that led to cardiac catheterization. This did not show any hemodynamically significant disease. Otherwise, multiple risk factors including type 2 diabetes, hypertension, dyslipidemia, overweight. He was a smoker but nothing in the last several year s. Since last seen, no specific cardiac complaints. No angina. [facility] Medical History Allergic asthma COPD (chronic obstructive pulmonary disease) Encounter for screening for malignant neoplasm of lung in former smoker who quit in past 15 years with 30 pack year history or greater Other and unspecified hyperlipidemia Essential hypertension Type 2 diabetes mellitus with unspecified complications Atherosclerotic cardiovascular disease Hypercholesterolemia Elevated PSA Scrotal pruritus Hypogonadism in male Incomplete emptying of bladder Myocardial infarction Nocturia Prostate cancer Surgical History History of neck surgery History of tonsillectomy History of appendectomy Family History Father CVD (cardiovascular disease) Mother No problems noted. Social History Alcohol intake: current Alcohol intake frequency: 0-2 drinks per day Alcohol type: beer and hard liquor Patient Tobacco Use Status: Former Tobacco user Years Smoked: 14 +/- Current occupational status: retired Current occupation: Right Handed Review of Systems Const Denies chills, Denies fatigue, Denies fever(s), Denies weight gain and Denies weight loss ENT Denies dizziness Card Denies chest pain, Denies leg edema, Denies lightheadedness, Denies palpitations, Reports dyspnea on exertion, Denies orthopnea and Denies other Resp Denies cough and Reports dyspnea on exertion GI Denies hematochezia and Denies change in stool character Musc Denies abnormal gait, Denies muscle weakness, Denies numbness, Denies radiating pain into limb and Denies tingling Neuro Denies abnormal gait, Denies dizziness, Denies numbness and Denies tingling Endo Denies fatigue and Denies palpitations Physical Exam Vital Signs: Last Vital Signs Pulse 58 05/13/24 12:30 BP 134/60 05/13/24 12:30 BMI result Body Mass Index 28.0 Const General: comfortable and no acute distress Orientation/consciousness: patient oriented x3 HEENT Other: Unremarkable Head: Yes normal to inspection Neck Neck: Yes normal visual inspection Chest Chest palpation & inspection: normal inspection of the chest Resp Auscultation: clear to auscultation bilaterally Cardio Palpation: normal PMI Heart sounds: S1 normal heart sound present, S2 normal heart sound present, no gallops, no murmurs and no rubs GI Palpation (GI): Soft to palpation Back/Spine/Pelvis Other: unremarkable Skin General skin exam: no rashes or lesions noted Neuro General: patient oriented x3 Extrem General: Yes normal to inspection Psych Mental Status: mental status grossly normal Office Procedures EKG Details: EKG with underlying sinus bradycardia 58/Min; 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 15361-[id number], Complete Assessment & Plan Assessment & Plan (1) Atherosclerotic cardiovascular disease: Code(s): I25.10 - Atherosclerotic heart disease of [place] coronary artery without angina pectoris Category: Medical Plan: Cardiac catheterization data reviewed from 2019. At that time, he had nonobstructive disease with no more than noxs-ra-tjzzfewa disease. LVEDP was normal. Last echocardiogram from January 2021 with normal LVEF, 60-65%; normal diastolic function; no significant valvular pathology. He remains on aspirin, beta-blockers and statins. Last LDL 67 mg/dL. (2) Bifascicular block: Code(s): I45.2 - Bifascicular block Category: Medical Plan: Can be followed periodically on EKGs. (3) Type 2 diabetes mellitus with unspecified complications: Code(s): E11.8 - Type 2 diabetes mellitus with unspecified complications Category: Medical Plan: On metformin and Farxiga. Hemoglobin A1c is 7.3%. (4) Essential hypertension: Code(s): I10 - Essential (primary) hypertension Category: Medical Plan: He is on carvedilol, lisinopril, amlodipine. In the future, we can consider stopping the carvedilol and just going up on the amlodipine due to conduction system disease. (5) Other and unspecified hyperlipidemia: Code(s): E78.5 - Hyperlipidemia, unspecified Category: Medical Plan: On statins. Plan Discussed with who came for appointment. Coding Level of Care Code Est Pt Level 4 (71179) Diagnoses Atherosclerotic cardiovascular disease I25.10 Bifascicular block I45.2 Type 2 diabetes mellitus with unspecified complications E11.8 Essential hypertension I10 Other and unspecified hyperlipidemia E78.5 CPT Codes EKG - CPT: 30685-Arsjxuamiebhiqyft, Complete ([id number])
== END 2024-05-13 12:51 | disposition home or self-care (01) ==
PROVIDERS: PCP Internal Medicine; Visit Provider Internal Medicine
DX: I25.10 Atherosclerotic heart disease of native coronary artery without angina pectoris (principal); I45.2 Bifascicular block; E11.8 Type 2 diabetes mellitus with unspecified complications; I10 Essential (primary) hypertension; E78.5 Hyperlipidemia, unspecified
CPT/HCPCS: 93010; 99214

== ENCOUNTER → 2024-05-13 12:10 | Outpatient (BNVA) | payer MEDICARE, SELFPAY | PROVIDERS: PCP Internal Medicine; Visit Provider Internal Medicine | DX: I25.10 Atherosclerotic heart disease of native coronary artery without angina pectoris (principal); I45.2 Bifascicular block; I10 Essential (primary) hypertension; E11.9 Type 2 diabetes mellitus without complications; E78.5 Hyperlipidemia, unspecified | CPT/HCPCS: 93005; 99212 ==

== ENCOUNTER 2024-07-27 09:42 | Outpatient (REF) | payer MEDICARE, SELFPAY ==
[2024-07-27 13:13] LABS: MANUAL DIFF FLAG NO
[2024-07-27 13:14] LABS: Basophils Absolute Auto 0.1 X10*3/uL (0.0-0.2); Basophils Percent Auto 0.6 % (0-2); Eosinophils Absolute Auto 0.4 X10*3/uL (0.0-0.4); Eosinophils Percent Auto 4.4 % (0-4); Hematocrit 41.1 % (42.0-52.0); Hemoglobin 13.2 g/dl (14.0-18.0); Imm Gran Abs Auto 0.02 X10*3/uL (0.00-0.03); Imm Gran Pct Auto 0.2 % (0.0-0.4); Lymphocytes Absolute Auto 2.5 X10*3/uL (1.2-4.9); Mean Corpuscular HGB Conc 32.1 g/dl (31.0-36.0); Mean Corpuscular Hemoglobin 26.6 pg (27.0-33.0); Mean Corpuscular Volume 82.9 fL (80.0-98.0); Mean Platelet Volume 9.9 fL (9.4-12.4); Monocytes Absolute Auto 0.7 X10*3/uL (0.1-1.2); Monocytes Percent Auto 8.6 % (2-11); Neutrophils Absolute Auto 4.6 x10*3/uL (2.0-8.3); Neutrophils Percent Auto 56.2 % (45-73); Platelet Count 252 X10*3/uL (160-400); Red Blood Count 4.96 X10*6/uL (4.60-5.80); Red Cell Distribution Width 13.7 % (11.0-16.0); White Blood Count 8.2 X10*3/uL (4.8-10.8)
[2024-07-27 13:17] LABS: Appearance Urine Clear; Color Urine Yellow; Glucose Urine UA Negative (Negative); Leukocyte Esterase Urine Negative (Negative); Nitrite Urine Negative (Negative); PH 5.5 (5.0-9.0); Specific Gravity - Urine 1.015 (1.005-1.025); Urine Blood Negative (Negative); Urine Ketones Negative (Negative); Urine Protein Trace mg/dL (Neg-Trace)
[2024-07-27 13:25] LABS: Estimated Average Glucose 174 mg/dL; Hemoglobin A1C 199.2591 umol/L; Hemoglobin A1c % 7.7 % (<6.0); Total Hemoglobin (HGBA1C) 3298.7578 umol/L
[2024-07-27 13:27] LABS: Alanine Aminotransferase 26 U/L (0-40); Albumin Level 4.3 g/dL (3.5-5.0); Alkaline Phosphatase 72 U/L (39-117); Anion Gap 11 (12-20); Aspartate Amino Transferase 29 U/L (5-37); Bilirubin Total 0.7 mg/dL (0.0-1.0); Blood Urea Nitrogen 14 mg/dL (9-16); Calcium 9.5 mg/dL (8.4-10.2); Carbon Dioxide 26 mmol/L (22-29); Chloride 103 mmol/L (96-108); Cholesterol 126 mg/dL (<200); Estimated Glomerular Filt Rate > 60; Glucose Fasting 147 mg/dL (60-99); HDL Cholesterol 44 mg/dL (>40); LDL Cholesterol Calculated 66 mg/dL (<100); Sodium 136 mmol/L (135-145); Total Protein 6.8 g/dL (6.5-8.0); Triglycerides 80 mg/dL (<150)
[2024-07-27 14:27] LABS: Creatinine Urine 127.22 mg/dL; Microalbum/Creatinine Ratio Ur 33.7 ug/mg cr (<30)
== END 2024-07-27 09:43 | disposition home or self-care (01) ==
LOC: HO.HMGCLDS 09:42
PROVIDERS: PCP Internal Medicine; Visit Provider Internal Medicine
DX: I25.10 Atherosclerotic heart disease of native coronary artery without angina pectoris (principal); E78.00 Pure hypercholesterolemia, unspecified; I10 Essential (primary) hypertension; J44.9 Chronic obstructive pulmonary disease, unspecified; Z13.1 Encounter for screening for diabetes mellitus
CPT/HCPCS: 36415; 80053; 80061; 81003; 82043; 82570; 83036; 85025

== ENCOUNTER 2024-11-18 08:51 | Outpatient (REF) | payer MEDICARE, SELFPAY ==
[2024-11-18 10:10] LABS: MANUAL DIFF FLAG NO
[2024-11-18 10:22] LABS: Basophils Percent Auto 0.5 % (0-2); Eosinophils Absolute Auto 0.3 X10*3/uL (0.0-0.4); Eosinophils Percent Auto 4.8 % (0-4); Hematocrit 39.6 % (42.0-52.0); Imm Gran Abs Auto 0.02 X10*3/uL (0.00-0.03); Imm Gran Pct Auto 0.3 % (0.0-0.4); Lymphocytes Absolute Auto 2.2 X10*3/uL (1.2-4.9); Lymphocytes Percent Auto 32.5 % (20-40); Mean Corpuscular HGB Conc 32.8 g/dl (31.0-36.0); Mean Corpuscular Hemoglobin 26.5 pg (27.0-33.0); Mean Corpuscular Volume 80.7 fL (80.0-98.0); Mean Platelet Volume 9.5 fL (9.4-12.4); Monocytes Absolute Auto 0.6 X10*3/uL (0.1-1.2); Monocytes Percent Auto 9.1 % (2-11); Neutrophils Absolute Auto 3.5 x10*3/uL (2.0-8.3); Neutrophils Percent Auto 52.8 % (45-73); Platelet Count 231 X10*3/uL (160-400); Red Blood Count 4.91 X10*6/uL (4.60-5.80); Red Cell Distribution Width 13.8 % (11.0-16.0); White Blood Count 6.6 X10*3/uL (4.8-10.8)
[2024-11-18 10:26] LABS: Estimated Average Glucose 174 mg/dL; Hemoglobin A1c % 7.7 % (<6.0)
[2024-11-18 10:59] LABS: Creatinine Urine 64.09 mg/dL
[2024-11-18 11:09] LABS: Alanine Aminotransferase 31 U/L (0-40); Albumin Level 4.2 g/dL (3.5-5.0); Alkaline Phosphatase 68 U/L (39-117); Anion Gap 9 (12-20); Aspartate Amino Transferase 27 U/L (5-37); Bilirubin Total 0.8 mg/dL (0.0-1.0); Blood Urea Nitrogen 10 mg/dL (9-16); Calcium 9.1 mg/dL (8.4-10.2); Carbon Dioxide 26 mmol/L (22-29); Chloride 107 mmol/L (96-108); Estimated Glomerular Filt Rate > 60; Glucose Random 136 mg/dL (60-115); Sodium 138 mmol/L (135-145)
== END 2024-11-18 08:52 | disposition home or self-care (01) ==
LOC: HO.HMGCLDS 08:51
PROVIDERS: PCP Internal Medicine; Visit Provider Internal Medicine
DX: I25.10 Atherosclerotic heart disease of native coronary artery without angina pectoris (principal); I10 Essential (primary) hypertension; E78.00 Pure hypercholesterolemia, unspecified; E11.9 Type 2 diabetes mellitus without complications
CPT/HCPCS: 36415; 80053; 82043; 82570; 83036; 85025

== ENCOUNTER 2024-11-25 10:10 | Outpatient (AMB) | payer MEDICARE, SELFPAY ==
[2024-11-25 10:19] VITALS: BP 130/70; PULSE 61; TEMP 35.6; O2SAT 98; BMI 28.4
--- NOTE | 2024-11-25 10:19 | MHC.PC.OV ---
Vital Signs 11/25/24 10:19 Height 5 ft 9 in Weight 192 lb BMI 28.4 BP 130/70 Blood Pressure Location Lt brachial Position Sitting Pulse 61 Pulse Source Pulse Oximeter Temp 96.1 F L Temp Source Temporal Artery Scan Pulse Oximetry (%) 98 Oxygen Delivery Method Room Air Intake Visit Reasons: Routine Commercial Energy Auditor Required: No Accompanied by: Spouse Allergies codeine [CODEINE] Allergy (Intermediate, Verified 11/25/24 10:19) HIVES pseudoephedrine [From Sudafed] Allergy (Verified 11/25/24 10:19) Rash Codeine Phosphate Allergy (Unknown, Uncoded 11/25/24 10:19) nausea Tobacco use date assessed: 11/25/24 Fall risk assessment: No Falls in past year Dental Screening Dental Screen Date: 11/25/24 Did you have a dental visit in the last 12 months?: Yes Did you have a dental problem in the last 6 months where you did not have access to dental care?: No HPI HPI Comments History of Present Illness Details The patient is a 79 year old male with a past medical history of CAD s/p RI, type 2 diabetes, hypertension, hyperlipidema, COPD CV: CAD, RI. Following with cardiology. on norvasc, asa, lipitor, coreg Type 2 DM: On metformin, glipizide. Last A1C 7.7%. Asthma: On 250/50 but says insurance will pay for 500/50. Colonoscopy in 2019-dr mckinney no need for follow up ROS CONSTITUTIONAL: Denies weight loss, fever and chills. HEENT: Denies changes in vision and hearing. RESPIRATORY: Denies SOB and cough. CV: Denies palpitations and CP GI: Denies abdominal pain, nausea, vomiting and diarrhea. : Denies dysuria and urinary frequency. MSK: Denies new myalgia and joint pain. SKIN: Denies rash and pruritus. NEUROLOGICAL: Denies headache PSYCHIATRIC: Denies recent changes in mood. PHYSICAL EXAM: GENERAL: Alert and oriented x 3. NAD EYES: EOMI. Anicteric. HENT: Moist mucous membranes. No scleral icterus. No cervical lymphadenopathy. LUNGS: Clear to auscultation bilaterally. CARDIOVASCULAR: Regular rate and rhythm. No murmur. No JVD. ABDOMEN: Soft, non-tender +bs EXTREMITIES: No edema. Non-tender. SKIN: No rashes or lesions. Warm. NEUROLOGIC: No focal neurological deficits. CN II-XII grossly intact PSYCHIATRIC: Cooperative. Appropriate mood and affect PENDING SALE TO [facility] Medical History Allergic asthma COPD (chronic obstructive pulmonary disease) Encounter for screening for malignant neoplasm of lung in former smoker who quit in past 15 years with 30 pack year history or greater Other and unspecified hyperlipidemia Essential hypertension Type 2 diabetes mellitus with unspecified complications Atherosclerotic cardiovascular disease Hypercholesterolemia Elevated PSA Scrotal pruritus Hypogonadism in male Incomplete emptying of bladder Myocardial infarction Nocturia Prostate cancer Surgical History History of neck surgery History of tonsillectomy History of appendectomy Family History Father CVD (cardiovascular disease) Mother No problems noted. Social History Housing: House Alcohol intake: current Alcohol intake frequency: 0-2 drinks per day Alcohol type: beer and hard liquor Patient Tobacco Use Status: Former Tobacco user Years Smoked: 14 +/- e-Cigarette/Vaping Use: Former Use service: No Current occupational status: retired Current occupation: Right Handed Cognitive needs: No Hearing needs: No Vision needs: Yes (rx glasses) Questionnaire PHQ-9 Over the last 2 weeks, how often have you been bothered by any of the following problems? 1. Little interest or pleasure in doing things: not at all 2. Feeling down, depressed, or hopeless: not at all 3. Trouble falling or staying asleep, or sleeping too much: not at all 4. Feeling tired or having little energy: not at all 5. Poor appetite or overeating: not at all 6. Feeling bad about yourself - or that you are a failure or have let yourself or your family down: not at all 7. Trouble concentrating on things, such as reading the newspaper or watching television: not at all 8. Moving or speaking so slowly that other people could have noticed. Or the opposite - being so fidgety or restless that you have been moving around a lot more than usual: not at all 9. Thoughts that you would be better off or of hurting yourself in some way: not at all Total score: 0 Depression Screening Interpretation: Negative Depression Screening Done: Yes 25038 - PHQ-9 Billing: Yes Source: Developed by Drs. Cedrick Yeboah, Sarita Joseph, Ceasar Williamson and colleagues, with an educational gaurang from [employer]. Thrive Questionnaire Date Thrive assessed: 11/25/24 I am a: Patient Within the past 12 months, did the food you bought not last and you didn't have the money to get more?: Never true Within the past 12 months, did you worry whether your food would run out before you got money to buy more?: Never true Do you have trouble paying for medicines?: No Do you have trouble getting transportation to medical appointments?: No Do you have trouble paying your heating and electricity bill?: No Do you have trouble taking care of your child, family member or friend?: No Do you have trouble with day-to-day activities such as bathing, preparing meals, shopping, managing finances, etc.?: No Are you currently unemployed and looking for a job?: No Are you interested in more education?: No THRIVE Score: 0 AUDIT C Alcohol Use Questionnaire (AUDIT-C) 1. How often do you have a drink containing alcohol?: 2-4 times a month 2. How many drinks containing alcohol do you have on a typical day when you are drinking?: 1 or 2 3. How often do you have six or more drinks on one occasion?: Less than monthly Total Score: 3 TAYLOR-7 AMB Questionnaire TAYLOR-7 Date TAYLOR - 7 assessed: 11/25/24 Feeling nervous, anxious, or on edge: 0 = Not at all Not being able to stop or control worryin = Not at all Worrying too much about different things: 0 = Not at all Trouble relaxin = Not at all Being so restless that it is hard to sit still: 0 = Not at all Becoming easily annoyed or irritable: 0 = Not at all Feeling afraid as if something awful might happen: 0 = Not at all Total TAYLOR-7 score (0-4 normal; 5-9 mild; 10-14 moderate; 15-21 severe): 0 Source: Developed by Sarita PeresW. Jake, Ceasar Williamson and colleagues, with an educational gaurang from [employer]. Physical exam (Primary Care) Vital Signs: Last Vital Signs Temp 96.1 F L 11/25/24 10:19 Pulse 61 11/25/24 10:19 BP 130/70 11/25/24 10:19 Pulse Ox 98 11/25/24 10:19 Oxygen Delivery Method Room Air 11/25/24 10:19 BMI result Body Mass Index 28.4 Tobacco/Smoking Status: Tobacco use Status Tobacco use date assessed 11/25/24 11/25/24 10:23 Patient Tobacco Use Status Former Tobacco user 11/25/24 10:23 e-Cigarette/Vaping Use Former Use 11/25/24 10:33 PHQ-9: PHQ-9 Score PHQ-9: Total score 0 11/28/24 15:21 Depression Screening Interpretation: Negative Thrive Assessment: Date of Thrive Assessment Date Thrive assessed 11/25/24 11/25/24 10:23 Coding Level of Care Code New Pt Level 4 (58346) Diagnoses Type 2 diabetes mellitus with unspecified complications E11.8 Chronic obstructive pulmonary disease, unspecified COPD type J44.9 COPD type: unspecified COPD Essential hypertension I10 Additional Codes PHQ-9 - 56536 - PHQ-9 Billing: Yes ([id number]) Assessment & Plan Assessment & Plan (1) Type 2 diabetes mellitus with unspecified complications: Code(s): E11.8 - Type 2 diabetes mellitus with unspecified complications Category: Medical (2) COPD (chronic obstructive pulmonary disease): Code(s): J44.9 - Chronic obstructive pulmonary disease, unspecified Category: Medical Qualifiers: COPD type: unspecified COPD Qualified Code(s): J44.9 - Chronic obstructive pulmonary disease, unspecified (3) Essential hypertension: Code(s): I10 - Essential (primary) hypertension Category: Medical Plan 79 year old to establish care Past medical, surgical, social, family history reviewed CV: BP well controlled Diabetes slightly suboptimal Orders: Orders Complete Blood Count Auto Diff 3 Months E11.8 - Type 2 diabetes mellitus with unspecified complications, I10 - Essential (primary) hypertension, I25.10 - Atherosclerotic heart disease of [place] coronary artery without angina pectoris, J44.9 - Chronic obstructive pulmonary disease, unspecified Hemoglobin A1c 3 Months E11.8 - Type 2 diabetes mellitus with unspecified complications, I10 - Essential (primary) hypertension, I25.10 - Atherosclerotic heart disease of [place] coronary artery without angina pectoris, J44.9 - Chronic obstructive pulmonary disease, unspecified Prostate Specific Antigen 3 Months E11.8 - Type 2 diabetes mellitus with unspecified complications, I10 - Essential (primary) hypertension, I25.10 - Atherosclerotic heart disease of [place] coronary artery without angina pectoris, J44.9 - Chronic obstructive pulmonary disease, unspecified Vitamin B12 and Folate 11/25/24 D64.9 - Anemia, unspecified Comprehensive Met. Panel 3 Months E11.8 - Type 2 diabetes mellitus with unspecified complications, I10 - Essential (primary) hypertension, I25.10 - Atherosclerotic heart disease of [place] coronary artery without angina pectoris, J44.9 - Chronic obstructive pulmonary disease, unspecified Lipid Panel 3 Months E11.8 - Type 2 diabetes mellitus with unspecified complications, I10 - Essential (primary) hypertension, I25.10 - Atherosclerotic heart disease of [place] coronary artery without angina pectoris, J44.9 - Chronic obstructive pulmonary disease, unspecified Medications: New glipizide ER 10 mg PO DAILY 90 tabs 3RF fluticasone propion-salmeterol 250-50 mcg/dose 1 inh inhalation BID 3 ea 3RF fluticasone propion-salmeterol 500-50 mcg/dose 1 inh inhalation BID 3 ea 3RF FreeStyle Janis 2 Plus Sensor (blood-glucose sensor) every 15 days 6 ea 3RF NS E11.8 - Type 2 diabetes mellitus with unspecified complications Discontinued fluticasone propion-salmeterol 250-50 mcg/dose (Advair Diskus) Discontinued Reason: Doctor's Order 1 inh inhalation BID 60 ea 1RF
== END 2024-11-25 11:01 | disposition home or self-care (01) ==
LOC: HO.HMCHD 10:10
PROVIDERS: PCP Internal Medicine; Visit Provider Internal Medicine
DX: E11.8 Type 2 diabetes mellitus with unspecified complications (principal); J44.9 Chronic obstructive pulmonary disease, unspecified; I10 Essential (primary) hypertension

== ENCOUNTER → 2024-11-25 10:10 | Outpatient (BNVA) | payer MEDICARE, SELFPAY | PROVIDERS: PCP Internal Medicine; Visit Provider Internal Medicine | DX: I25.10 Atherosclerotic heart disease of native coronary artery without angina pectoris (principal); I25.2 Old myocardial infarction; E11.9 Type 2 diabetes mellitus without complications; I10 Essential (primary) hypertension; E78.5 Hyperlipidemia, unspecified; J44.9 Chronic obstructive pulmonary disease, unspecified | CPT/HCPCS: 96127; 99202 ==

== ENCOUNTER 2025-02-14 08:41 | Outpatient (REF) | payer OTHER, SELFPAY ==
[2025-02-14 10:20] LABS: MANUAL DIFF FLAG NO
[2025-02-14 10:29] LABS: Basophils Percent Auto 0.3 % (0-2); Eosinophils Absolute Auto 0.3 X10*3/uL (0.0-0.4); Eosinophils Percent Auto 4.2 % (0-4); Hematocrit 40.6 % (42.0-52.0); Hemoglobin 12.9 g/dl (14.0-18.0); Imm Gran Abs Auto 0.02 X10*3/uL (0.00-0.03); Imm Gran Pct Auto 0.3 % (0.0-0.4); Lymphocytes Absolute Auto 1.9 X10*3/uL (1.2-4.9); Lymphocytes Percent Auto 30.1 % (20-40); Mean Corpuscular HGB Conc 31.8 g/dl (31.0-36.0); Mean Corpuscular Hemoglobin 26.7 pg (27.0-33.0); Mean Corpuscular Volume 83.9 fL (80.0-98.0); Mean Platelet Volume 9.9 fL (9.4-12.4); Monocytes Absolute Auto 0.5 X10*3/uL (0.1-1.2); Monocytes Percent Auto 7.6 % (2-11); Neutrophils Absolute Auto 3.5 x10*3/uL (2.0-8.3); Neutrophils Percent Auto 57.5 % (45-73); Platelet Count 245 X10*3/uL (160-400); Red Blood Count 4.84 X10*6/uL (4.60-5.80); Red Cell Distribution Width 13.8 % (11.0-16.0); White Blood Count 6.2 X10*3/uL (4.8-10.8)
[2025-02-14 10:39] LABS: Estimated Average Glucose 151 mg/dL; Hemoglobin A1c % 6.9 % (<6.0)
[2025-02-14 11:00] LABS: Alanine Aminotransferase 25 U/L (0-40); Albumin Level 4.4 g/dL (3.5-5.0); Alkaline Phosphatase 65 U/L (39-117); Anion Gap 11 (12-20); Aspartate Amino Transferase 25 U/L (5-37); Bilirubin Total 0.7 mg/dL (0.0-1.0); Blood Urea Nitrogen 13 mg/dL (9-16); Calcium 9.3 mg/dL (8.4-10.2); Carbon Dioxide 27 mmol/L (22-29); Chloride 107 mmol/L (96-108); Cholesterol 111 mg/dL (<200); Estimated Glomerular Filt Rate > 60; Glucose Random 123 mg/dL (60-115); HDL Cholesterol 40 mg/dL (>40); LDL Cholesterol Calculated 62 mg/dL (<100); Potassium 4.3 mmol/L (3.3-5.1); Sodium 141 mmol/L (135-145); Total Protein 6.6 g/dL (6.5-8.0); Triglycerides 46 mg/dL (<150)
[2025-02-14 11:20] LABS: Prostate Specific Antigen < 0.10 ng/mL (<0.05-4.0)
== END 2025-02-14 08:42 | disposition home or self-care (01) ==
LOC: HO.HMGCLDS 08:41
PROVIDERS: PCP Internal Medicine; Visit Provider Internal Medicine
DX: I25.10 Atherosclerotic heart disease of native coronary artery without angina pectoris (principal); I10 Essential (primary) hypertension; J44.9 Chronic obstructive pulmonary disease, unspecified; E11.8 Type 2 diabetes mellitus with unspecified complications; Z12.5 Encounter for screening for malignant neoplasm of prostate
CPT/HCPCS: 36415; 80053; 80061; 83036; 84153; 85025

== ENCOUNTER 2025-02-17 10:06 | Outpatient (AMB) | payer MEDICARE, SELFPAY ==
[2025-02-17 10:13] VITALS: BP 128/70; PULSE 57; TEMP 36.1; O2SAT 98; BMI 28.6
--- NOTE | 2025-02-17 10:13 | MHC.PC.OV ---
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: No Accompanied by: Spouse Allergies codeine (CODEINE) Allergy (Intermediate, Verified 02/17/25 10:13) HIVES pseudoephedrine (From Sudafed) Allergy (Verified 02/17/25 10:13) Rash Codeine Phosphate Allergy (Unknown, Uncoded 11/25/24 10:19) nausea Tobacco use date assessed: 02/17/25 Fall risk assessment: No Falls in past year Last assessed Fall Risk: 02/17/25 Dental Screening Dental Screen Date: 02/17/25 Did you have a dental visit in the last 12 months?: Yes Did you have a dental problem in the last 6 months where you did not have access to dental care?: No HPI HPI Comments History of Present Illness Details The patient is a 79 year old male with a past medical history of CAD s/p ME, type 2 diabetes, hypertension, hyperlipidema, COPD presenting for follow up CV: CAD, [place]. Following with cardiology. on norvasc, asa, lipitor, coreg. BP well controlled Type 2 DM: On metformin 500 TID, glipizide 10mg daily. Last A1C 6.9 from 7.7%. He is getting some lows into the 60s on glipizide. He would like to come totally off the metformin. He has CGM Asthma: On 250/50 but says insurance will pay for 500/50-still expensive would like alternative if cheaper. Colonoscopy in 2019-dr mckinney no need for follow up ROS CONSTITUTIONAL: Denies weight loss, fever and chills. HEENT: Denies changes in vision and hearing. RESPIRATORY: Denies SOB and cough. CV: Denies palpitations and CP GI: Denies abdominal pain, nausea, vomiting and diarrhea. : Denies dysuria and urinary frequency. MSK: Denies new myalgia and joint pain. SKIN: Denies rash and pruritus. NEUROLOGICAL: Denies headache PSYCHIATRIC: Denies recent changes in mood. PHYSICAL EXAM: GENERAL: Alert and oriented x 3. NAD EYES: EOMI. Anicteric. HENT: Moist mucous membranes. No scleral icterus. No cervical lymphadenopathy. LUNGS: Clear to auscultation bilaterally. CARDIOVASCULAR: Regular rate and rhythm. No murmur. No JVD. ABDOMEN: Soft, non-tender +bs EXTREMITIES: No edema. Non-tender. SKIN: No rashes or lesions. Warm. NEUROLOGIC: No focal neurological deficits. CN II-XII grossly intact PSYCHIATRIC: Cooperative. Appropriate mood and affect [facility] Medical History Allergic asthma COPD (chronic obstructive pulmonary disease) Encounter for screening for malignant neoplasm of lung in former smoker who quit in past 15 years with 30 pack year history or greater Other and unspecified hyperlipidemia Essential hypertension Type 2 diabetes mellitus with unspecified complications Atherosclerotic cardiovascular disease Hypercholesterolemia Elevated PSA Scrotal pruritus Hypogonadism in male Incomplete emptying of bladder Myocardial infarction Nocturia Prostate cancer Surgical History History of neck surgery History of tonsillectomy History of appendectomy Family History Father CVD (cardiovascular disease) Mother No problems noted. Social History Housing: House Alcohol intake: current Alcohol intake frequency: 0-2 drinks per day Alcohol type: beer and hard liquor Patient Tobacco Use Status: Former Tobacco user Years Smoked: 14 +/- e-Cigarette/Vaping Use: Former Use service: No Current occupational status: retired Current occupation: Right Handed Cognitive needs: No Hearing needs: No Vision needs: Yes (rx glasses) Questionnaire PHQ-9 Over the last 2 weeks, how often have you been bothered by any of the following problems? 1. Little interest or pleasure in doing things: not at all 2. Feeling down, depressed, or hopeless: several days 3. Trouble falling or staying asleep, or sleeping too much: not at all 4. Feeling tired or having little energy: not at all 5. Poor appetite or overeating: not at all 6. Feeling bad about yourself - or that you are a failure or have let yourself or your family down: not at all 7. Trouble concentrating on things, such as reading the newspaper or watching television: not at all 8. Moving or speaking so slowly that other people could have noticed. Or the opposite - being so fidgety or restless that you have been moving around a lot more than usual: not at all 9. Thoughts that you would be better off or of hurting yourself in some way: not at all Total score: 1 Depression Screening Interpretation: Negative Depression Screening Done: Yes 34597 - PHQ-9 Billing: Yes Source: Developed by Drs. Cedrick Yeboah, Sarita Joseph, Ceasar Williamson and colleagues, with an educational gaurang from [employer]. Thrive Questionnaire Date Thrive assessed: 02/17/25 I am a: Patient Within the past 12 months, did the food you bought not last and you didn't have the money to get more?: Never true Within the past 12 months, did you worry whether your food would run out before you got money to buy more?: Never true Do you have trouble paying for medicines?: No Do you have trouble getting transportation to medical appointments?: No Do you have trouble paying your heating and electricity bill?: No Do you have trouble taking care of your child, family member or friend?: No Do you have trouble with day-to-day activities such as bathing, preparing meals, shopping, managing finances, etc.?: No Are you currently unemployed and looking for a job?: No Are you interested in more education?: No THRIVE Score: 0 AUDIT C Alcohol Use Questionnaire (AUDIT-C) 1. How often do you have a drink containing alcohol?: Monthly or less 2. How many drinks containing alcohol do you have on a typical day when you are drinking?: 1 or 2 3. How often do you have six or more drinks on one occasion?: Less than monthly Total Score: 2 TAYLOR-7 AMB Questionnaire TAYLOR-7 Date TAYLOR - 7 assessed: 02/17/25 Feeling nervous, anxious, or on edge: 1 = Several days Not being able to stop or control worryin = Not at all Worrying too much about different things: 0 = Not at all Trouble relaxin = Not at all Being so restless that it is hard to sit still: 0 = Not at all Becoming easily annoyed or irritable: 0 = Not at all Feeling afraid as if something awful might happen: 0 = Not at all Total TAYLOR-7 score (0-4 normal; 5-9 mild; 10-14 moderate; 15-21 severe): 1 Source: Developed by Drs. Cedrick Yeboah, Sarita Joseph, Ceasar Williamson and colleagues, with an educational gaurang from [employer]. Physical exam (Primary Care) Vital Signs: Last Vital Signs Temp 97 F 02/17/25 10:13 Pulse 57 02/17/25 10:13 BP 128/70 02/17/25 10:13 Pulse Ox 98 02/17/25 10:13 Oxygen Delivery Method Room Air 02/17/25 10:13 BMI result Body Mass Index 28.6 Tobacco/Smoking Status: Tobacco use Status Tobacco use date assessed 02/17/25 02/17/25 10:14 Patient Tobacco Use Status Former Tobacco user 02/17/25 10:14 e-Cigarette/Vaping Use Former Use 02/17/25 10:14 PHQ-9: PHQ-9 Score PHQ-9: Total score 1 02/17/25 10:30 Depression Screening Interpretation: Negative Thrive Assessment: Date of Thrive Assessment Date Thrive assessed 02/17/25 02/17/25 10:14 Coding Level of Care Code Est Pt Level 4 (11830) Complex EM visit Add On G2211 Diagnoses Essential hypertension I10 Other and unspecified hyperlipidemia E78.5 Type 2 diabetes mellitus with unspecified complications E11.8 Prostate cancer C61 Additional Codes PHQ-9 - 58134 - PHQ-9 Billing: Yes ([id number]) Assessment & Plan Assessment & Plan (1) Essential hypertension: Code(s): I10 - Essential (primary) hypertension Category: Medical (2) Other and unspecified hyperlipidemia: Code(s): E78.5 - Hyperlipidemia, unspecified Category: Medical (3) Type 2 diabetes mellitus with unspecified complications: Code(s): E11.8 - Type 2 diabetes mellitus with unspecified complications Category: Medical (4) Prostate cancer: Code(s): C61 - Malignant neoplasm of prostate Category: Medical Plan Type 2 diabetes-controlled but with 3% hypoglycemia. He wants to try glipizide twice daily. If still having low decrease to 5mg once daily. Stop metformin. Start Actos. Follow up one month or sooner as needed HTN is well controlled on current medications History of prostate cancer-psa has been normal Medications: New glipizide ER 5 mg PO BID 180 tabs 3RF pioglitazone 30 mg PO DAILY 90 tabs 3RF Symbicort 160-4.5 mcg/actuation (budesonide-formoterol) 2 puffs inhalation BID 1 ea 0RF NS Discontinued glipizide ER Discontinued Reason: Doctor's Order 10 mg PO DAILY 90 tabs 3RF On Hold metformin Hold Comment: Dose Change 500 mg PO TID 90 days 270 tabs 0RF
== END 2025-02-17 11:09 | disposition home or self-care (01) ==
LOC: HO.HMCHD 10:06
PROVIDERS: PCP Internal Medicine; Visit Provider Internal Medicine
DX: I10 Essential (primary) hypertension (principal); E78.5 Hyperlipidemia, unspecified; E11.8 Type 2 diabetes mellitus with unspecified complications; C61 Malignant neoplasm of prostate

== ENCOUNTER → 2025-02-17 10:06 | Outpatient (BNVA) | payer MEDICARE, SELFPAY | PROVIDERS: PCP Internal Medicine; Visit Provider Internal Medicine | DX: I10 Essential (primary) hypertension (principal); E78.5 Hyperlipidemia, unspecified; E11.8 Type 2 diabetes mellitus with unspecified complications; C61 Malignant neoplasm of prostate; I25.10 Atherosclerotic heart disease of native coronary artery without angina pectoris; J45.909 Unspecified asthma, uncomplicated; I25.2 Old myocardial infarction; Z79.84 Long term (current) use of oral hypoglycemic drugs; Z13.31 Encounter for screening for depression; Z13.30 Encounter for screening examination for mental health and behavioral disorders, unspecified | CPT/HCPCS: 96127; 99212 ==

== ENCOUNTER 2025-03-28 11:34 | Outpatient (REF) | payer MEDICARE, SELFPAY ==
--- OUTSIDE RECORDS SUMMARY | 2025-03-28 12:51 | XMS_ITS | Patient Health Record ---
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 Name Role Phone Tasha (RETIRED) Pedro Pablo ROSS Primary Care Provide r Unavailable Cedrick Rodriguez Unavailable [phone] Reason For Referral No Information Medications Medication SIG (Take, Route, Frequency, Duration) Notes Start Date End Date Status Carvedilol 6.25 MG as directed Orally T wice a day Active metFORMIN HCl 500 MG 1 tablet with a alfonso l Orally Once a day for 30 day(s) Active Zetia 10 MG 1 tablet Orally Once a day for 30 day(s) Active Aspirin 81 81 MG 1 tablet Orally at hs Active Cinnamon 500 MG as directed Orally Active Gabapentin 100 MG 1 tablet Oral Once a day Active Lipitor 40 MG 1 tablet Orally Once a day for 30 day(s) Active amLODIPine Besylate 5 MG 1 tablet Orally Once a day for 30 day(s) Active Lisinopril 40 MG 1 tablet Orally Once a day for 30 day(s) Active Omeprazole 20 MG 1 capsule Orally Onc e a day for 30 day(s) Active Immunizations Vaccine Route Administration Date Status Comme nts Influenza Unknown 05/02/2019 Administered Social History Tobacco Use: Social History Observation Description Date Details (start date - stop date) Former Smoker NA - NA Tobacco Use/Smoking Question Answer Notes Patient is a former smoker When did you stop smoking? 15 years ago How long has it been since you last smoked? > 10 years Alcohol Screen Question Answer Notes Did you have a drink contain ing alcohol in the past year? Yes How often did you have a dri nk containing alcohol in the past year? 4 or more times a week (4 points) How many drinks did you have on a typical day when you were drinking in the past year? 1 or 2 drinks (0 point) Points 4 Interpretation Positive Section Notes: Nonsmoker; 3-4 drinks per da y Problems Problem Type SNOMED Code ICD Code Onset Dates Problem Status W/U Status Risk Notes Problem 937798709 Encounter for screening for malignant neoplasm of colon (Z12.11) Active confirmed Problem 911891550 Long-term use of aspirin therapy (Z79.82) Active confirmed Plan Of Treatment Pending Test Test Name Order Date GI BIOPSY 09/08/2019 Future Test Test Name Order Date COLONOSCOPY 06/24/2019 Insurance Providers Payer Name Payer Address Payer Phone Subscriber Number Group Number Insured Name Patient Relationship to Insured Coverage Start Date Coverage End Date [facility] [address] [facility] [place] [phone] [id number] RACHELL LIVINGSTON Self - patient is the insured Medical (General) History Medical History History ICD Code [place] 1996 treated with Streptokinase--had a neg. cardiac cath in 2018 Prostate cancer 2014 with radiation Hypertension NIDDM Hypercholesterolemia Neg. screening colonoscopy in 10/2009 Neuropathy Denies CVA,Lung disease,renal disease Surgical History Surgery Date(Month/Year) Appendectomy Cervical spine disk surgery Cataracts Deviated septum Ear surgery for tubes Sinus surgery Ankle surgery for ostomyelitis as a chil d
[2025-03-28 14:01] LABS: Prostate Specific Antigen < 0.10 ng/mL (<0.05-4.0)
[2025-03-28 14:14] LABS: Folate 13.6 ng/mL (> or = 4.0); Vitamin B12 302 pg/mL (200-900)
== END 2025-03-28 11:35 | disposition home or self-care (01) ==
LOC: HO.HMGCLDS 11:34
PROVIDERS: Urology; PCP Internal Medicine; Visit Provider Internal Medicine
DX: C61 Malignant neoplasm of prostate (principal); D63.0 Anemia in neoplastic disease
CPT/HCPCS: 36415; 82607; 82746; 84153

== ENCOUNTER 2025-03-31 09:57 | Outpatient (AMB) | payer MEDICARE, SELFPAY ==
--- NOTE | 2025-03-31 09:58 | A.OFFPC_ITS ---
Vital Signs 03/31/25 10:05 Height 5 ft 9 in Weight 200 lb BMI 29.5 BP 138/68 Blood Pressure Location Lt brachial Position Sitting Respiration 16 Pulse 61 Pulse Source Pulse Oximeter Temp 96.3 F L Temp Source Temporal Artery Scan Pulse Oximetry (%) 97 Oxygen Delivery Method Room Air Intake Visit Reasons: Annual / Per Hitting Coach RX Check Pierogi Maker Required: No Accompanied by: Spouse Allergies codeine (CODEINE) Allergy (Intermediate, Verified 03/31/25 09:58) HIVES pseudoephedrine (From Sudafed) Allergy (Verified 03/31/25 09:58) Rash Codeine Phosphate Allergy (Unknown, Uncoded 11/25/24 10:19) nausea Tobacco use date assessed: 02/17/25 Dental Screening Dental Screen Date: 02/17/25 HPI HPI Comments History of Present Illness Details The patient is a 79 year old male with a past medical history of CAD s/p MA, type 2 diabetes, hypertension, hyperlipidema, COPD presenting for annual exam. CV: CAD, MA. Following with cardiology. on norvasc, asa, lipitor, coreg. BP well controlled. No ches tpain or dyspnea Type 2 DM: On actos 30mg daily, glipizide 5mg ER bid. stopped metformin 500 TID. Last A1C 6.9 from 7.7%. He has CGM which is reviewed today, 22 hypoglycemic readings for the past 90 days, 3 for the past 30 days. 90 days TGT 84%, high 15%, low 1%. Asthma: On advair 500/50-still expensive would like alternative if cheaper. Colonoscopy in 2019-dr mckinney no need for follow up ROS CONSTITUTIONAL: Denies weight loss, fever and chills. HEENT: Denies changes in vision and hearing. RESPIRATORY: Denies SOB and cough. CV: Denies palpitations and CP GI: Denies abdominal pain, nausea, vomiting and diarrhea. : Denies dysuria and urinary frequency. MSK: Denies new myalgia and joint pain. SKIN: Denies rash and pruritus. NEUROLOGICAL: Denies headache PSYCHIATRIC: Denies recent changes in mood. PHYSICAL EXAM: GENERAL: Alert and oriented x 3. NAD EYES: EOMI. Anicteric. HENT: Moist mucous membranes. No scleral icterus. No cervical lymphadenopathy. LUNGS: Clear to auscultation bilaterally. CARDIOVASCULAR: Regular rate and rhythm. No murmur. No JVD. ABDOMEN: Soft, non-tender +bs EXTREMITIES: No edema. Non-tender. SKIN: No rashes or lesions. Warm. NEUROLOGIC: No focal neurological deficits. CN II-XII grossly intact PSYCHIATRIC: Cooperative. Appropriate mood and affect [facility] Medical History (Updated 03/31/25 @ 10:25 by Mavis García MD) Allergic asthma COPD (chronic obstructive pulmonary disease) Encounter for screening for malignant neoplasm of lung in former smoker who quit in past 15 years with 30 pack year history or greater Other and unspecified hyperlipidemia Essential hypertension Type 2 diabetes mellitus with unspecified complications Atherosclerotic cardiovascular disease Hypercholesterolemia Elevated PSA Scrotal pruritus Hypogonadism in male Incomplete emptying of bladder Myocardial infarction Nocturia Prostate cancer Surgical History (Updated 03/28/25 @ 16:10 by Petra Gilliland) History of colonoscopy (~09/08/19) History of neck surgery History of tonsillectomy History of appendectomy Family History Father CVD (cardiovascular disease) Mother No problems noted. Social History Housing: House Alcohol intake: current Alcohol intake frequency: 0-2 drinks per day Alcohol type: beer and hard liquor Patient Tobacco Use Status: Former Tobacco user Years Smoked: 14 +/- e-Cigarette/Vaping Use: Former Use service: No Current occupational status: retired Current occupation: Right Handed Cognitive needs: No Hearing needs: No Vision needs: Yes (rx glasses) Questionnaire Thrive Questionnaire Date Thrive assessed: 02/17/25 TAYLOR-7 AMB Questionnaire TAYLOR-7 Date TAYLOR - 7 assessed: 02/17/25 Source: Developed by Drs. Cedrick Yeboah, Sarita Joseph, Ceasar Williamson and colleagues, with an educational gaurang from [employer]. Physical exam (Primary Care) Vital Signs: Last Vital Signs Temp 96.3 F L 03/31/25 10:05 Pulse 61 03/31/25 10:05 Resp 16 03/31/25 10:05 BP 138/68 03/31/25 10:05 Pulse Ox 97 03/31/25 10:05 Oxygen Delivery Method Room Air 03/31/25 10:05 BMI result Body Mass Index 29.5 Tobacco/Smoking Status: Tobacco use Status Tobacco use date assessed 02/17/25 03/31/25 10:08 Patient Tobacco Use Status Former Tobacco user 03/31/25 10:08 e-Cigarette/Vaping Use Former Use 03/31/25 10:08 Thrive Assessment: Date of Thrive Assessment Date Thrive assessed 02/17/25 03/31/25 10:08 Coding Level of Care Code Est Pt Prev Care >65y(95188) Diagnoses Physical exam Z00.00 Type 2 diabetes mellitus with unspecified complications E11.8 Assessment & Plan Assessment & Plan (1) Physical exam: Code(s): Z00.00 - Encounter for general adult medical examination without abnormal findings Category: Medical (2) Type 2 diabetes mellitus with unspecified complications: Code(s): E11.8 - Type 2 diabetes mellitus with unspecified complications Category: Medical Plan CPE Interval history reviewed Diabetes is well controlled. He should continue CGM which has been helpful in alerting him to lows. Skip morning glipizide if being very active on a given day. continue actos Labs ordered Orders: Orders Hemoglobin A1c Today E11.8 - Type 2 diabetes mellitus with unspecified complications Comprehensive Met. Panel Today E11.8 - Type 2 diabetes mellitus with unspecified complications Medications: Discontinued metformin Discontinued Reason: Doctor's Order 500 mg PO TID 90 days 270 tabs 0RF
[2025-03-31 10:05] VITALS: BP 138/68; PULSE 61; RESP 16; TEMP 35.7; O2SAT 97; BMI 29.5
--- OUTSIDE RECORDS SUMMARY | 2025-03-31 10:34 | XMS_ITS | Patient Health Record ---
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 Role Phone Tasha (RETIRED) Pedro Pablo ROSS Primary Care Provide r Unavailable Cedrick Rodriguez Unavailable [phone] Reason For Referral No Information Medications Medication [...] Problem Status W/U Status Risk Notes Problem [id number] Encounter for screening for malignant neoplasm of colon (Z12.11) Active confirmed Problem 071609871 Long-term use of aspirin therapy (Z79.82) Active confirmed Plan Of Treatment Pending Test Test Name Order Date GI BIOPSY 09/08/2019 Future Test Test Name Order Date COLONOSCOPY 06/24/2019 Insurance Providers Payer Name Payer Address Payer Phone Subscriber Number Group Number Insured Name Patient Relationship to Insured Coverage Start Date Coverage End Date [facility] [address] [facility] [place] [phone] [id number] RACHELL LIVINGSTON Self - patient is the insured Medical (General) History Medical History History ICD Code [place] 1996 treated with Streptokinase--had a neg. cardiac cath in 2018 Prostate cancer 2014 with radiation Hypertension NIDDM Hypercholesterolemia Neg. screening colonoscopy in 10/2009 Neuropathy Denies CVA,Lung disease,renal disease Surgical History Surgery Date(Month/Year) Appendectomy Cervical spine disk surgery Cataracts Deviated septum Ear surgery for tubes Sinus surgery Ankle surgery for ostomyelitis as a chil d
== END 2025-03-31 10:45 | disposition home or self-care (01) ==
LOC: HO.HMCHD 09:58
PROVIDERS: PCP Internal Medicine; Visit Provider Internal Medicine
DX: Z00.00 Encounter for general adult medical examination without abnormal findings (principal); E11.8 Type 2 diabetes mellitus with unspecified complications

== ENCOUNTER → 2025-03-31 09:57 | Outpatient (BNVA) | payer MEDICARE, SELFPAY | PROVIDERS: PCP Internal Medicine; Visit Provider Internal Medicine | DX: Z00.00 Encounter for general adult medical examination without abnormal findings (principal); E11.8 Type 2 diabetes mellitus with unspecified complications | CPT/HCPCS: 99397 ==

== ENCOUNTER 2025-05-23 09:03 | Outpatient (AMB) | payer MEDICARE, SELFPAY ==
[2025-05-23 09:04] VITALS: BP 138/68; PULSE 53; BMI 29.0
--- NOTE | 2025-05-23 09:04 | MHC.OFFVIS ---
Vital Signs 05/23/25 09:04 Height 5 ft 9 in Weight 196 lb 3.382 oz BMI 29.0 BP 138/68 Blood Pressure Location Lt brachial Position Sitting Pulse 53 Pulse Source Monitor Intake Visit Reasons: 1 yr f/up Allergies codeine (CODEINE) Allergy (Intermediate, Verified 03/31/25 09:58) HIVES pseudoephedrine (From Sudafed) Allergy (Verified 03/31/25 09:58) Rash Codeine Phosphate Allergy (Unknown, Uncoded 11/25/24 10:19) nausea Medication List - Last Reconciled 05/23/25 by Brian Phelps MD albuterol sulfate 90 mcg/actuation 0 mcg inhalation albuterol sulfate mg inhalation amlodipine 5 mg PO DAILY aspirin 81 mg PO DAILY atorvastatin (Lipitor) 40 mg PO DAILY carvedilol 6.25 mg PO BID cholecalciferol (vitamin D3) 50 mcg PO DAILY cinnamon bark (Cinnamon) 500 mg PO DAILY ezetimibe 10 mg PO DAILY flash glucose sensor (FreeStyle Janis 2 Sensor kit) As directed fluticasone propion-salmeterol 500-50 mcg/dose 1 inh inhalation BID FreeStyle Janis 2 Plus Sensor (blood-glucose sensor) every 15 days NS glipizide ER 5 mg PO BID ibuprofen 600 mg PO BID PRN lisinopril 40 mg PO DAILY omeprazole 20 mg PO DAILY pioglitazone 30 mg PO DAILY HPI Comments Details: Conner returns for follow up regarding coronary artery disease. He has a history of coronary artery disease. Around 1996, he had acute myocardial infarction. Received fibrinolytics for treatment. Since then he was doing okay but again had chest pain in 2019 that led to cardiac catheterization. This did not show any hemodynamically significant disease. Otherwise, multiple risk factors including type 2 diabetes, hypertension, dyslipidemia, overweight. He was a smoker but nothing in the last several years. Since last seen, he states he is doing well. He is working part-time at a country [employer] and doing about 1000 steps a day with no issues. No cardiac symptoms. [facility] Medical History (Updated 03/31/25 @ 10:25 by Mavis García MD) Allergic asthma COPD (chronic obstructive pulmonary disease) Encounter for screening for malignant neoplasm of lung in former smoker who quit in past 15 years with 30 pack year history or greater Other and unspecified hyperlipidemia Essential hypertension Type 2 diabetes mellitus with unspecified complications Atherosclerotic cardiovascular disease Hypercholesterolemia Elevated PSA Scrotal pruritus Hypogonadism in male Incomplete emptying of bladder Myocardial infarction Nocturia Prostate cancer Surgical History (Updated 03/28/25 @ 16:10 by Petra Gilliland) History of colonoscopy (~09/08/19) History of neck surgery History of tonsillectomy History of appendectomy Family History Father CVD (cardiovascular disease) Mother No problems noted. Social History Housing: House Alcohol intake: current Alcohol intake frequency: 0-2 drinks per day Alcohol type: beer and hard liquor Patient Tobacco Use Status: Former Tobacco user Years Smoked: 14 +/- e-Cigarette/Vaping Use: Former Use service: No Current occupational status: retired Current occupation: Right Handed Cognitive needs: No Hearing needs: No Vision needs: Yes (rx glasses) Review of Systems Const Denies weakness ENT Denies dizziness Card Denies chest pain, Denies chest pain with activity, Denies syncope, Denies rapid heart rate, Denies pedal edema, Denies edema, Denies leg edema, Denies lightheadedness, Denies palpitations, Denies dyspnea, Denies dyspnea on exertion and Denies orthopnea Resp Denies cough, Denies dyspnea and Denies dyspnea on exertion GI Denies hematochezia and Denies change in stool character Musc Denies abnormal gait, Denies muscle cramps, Denies muscle weakness, Denies numbness, Denies radiating pain into limb and Denies tingling Neuro Denies abnormal gait, Denies dizziness, Denies syncope, Denies numbness, Denies tingling and Denies weakness Endo Denies palpitations Physical Exam Vital Signs: Last Vital Signs Pulse 53 05/23/25 09:04 BP 138/68 05/23/25 09:04 BMI result Body Mass Index 29.0 Const General: comfortable and no acute distress Orientation/consciousness: patient oriented x3 HEENT Other: Unremarkable Head: Yes normal to inspection Neck Neck: Yes normal visual inspection Chest Chest palpation & inspection: normal inspection of the chest Resp Auscultation: clear to auscultation bilaterally Cardio Palpation: normal PMI Heart sounds: S1 normal heart sound present, S2 normal heart sound present, no gallops, no murmurs and no rubs GI Palpation (GI): Soft to palpation Back/Spine/Pelvis Other: unremarkable Skin General skin exam: no rashes or lesions noted Neuro General: patient oriented x3 Extrem General: Yes normal to inspection Psych Mental Status: mental status grossly normal Office Procedures EKG Details: EKG with sinus bradycardia at 53/Min; prolonged AK at 222 milliseconds; left anterior fascicular block and right bundle-branch block; minimal criteria for LVH; [place] [id number], Complete Assessment & Plan Assessment & Plan (1) Atherosclerotic cardiovascular disease: Code(s): I25.10 - Atherosclerotic heart disease of [place] coronary artery without angina pectoris Category: Medical Plan: Cardiac catheterization data reviewed from 2018. At that time, he had nonobstructive disease with no more than axsi-nu-wqfzizer disease. LVEDP was normal. Last echocardiogram from January 2021 with normal LVEF, 60-65%; normal diastolic function; no significant valvular pathology. He remains on aspirin, beta-blockers and statins. Last LDL 67 mg/dL. (2) Bifascicular block: Code(s): I45.2 - Bifascicular block Category: Medical Plan: Can be followed periodically on EKGs. (3) Type 2 diabetes mellitus with unspecified complications: Code(s): E11.8 - Type 2 diabetes mellitus with unspecified complications Category: Medical Plan: On glipizide, pioglitazone. Hemoglobin A1c is 6.9%. (4) Essential hypertension: Code(s): I10 - Essential (primary) hypertension Category: Medical Plan: Stop Coreg due to bifascicular block. Increase amlodipine. We discussed this today. (5) Other and unspecified hyperlipidemia: Code(s): E78.5 - Hyperlipidemia, unspecified Category: Medical Plan: On statins. Plan Discussion Notes During the visit, we discussed the need to discontinue carvedilol due to its effect on slowing the heart rate, which could lead to the necessity of a pacemaker if not addressed. We also talked about increasing amlodipine to manage blood pressure effectively after stopping carvedilol. The patient was advised to monitor blood pressure at home and to be vigilant for symptoms such as dizziness, which could indicate further heart rate issues. Patient was informed and verbally consented to the use of an ambient scribe for clinic note documentation during this visit. Discussed with who came for appointment. Medications: New amlodipine 10 mg PO DAILY 90 tabs 3RF Discontinued carvedilol Discontinued Reason: Doctor's Order 6.25 mg PO BID 180 tabs 3RF Patient Instructions: - Stop taking carvedilol as prescribed. - Increase amlodipine dosage as directed. - Monitor blood pressure at home regularly. - Watch for symptoms like dizziness and report them to the doctor. Coding Level of Care Code Est Pt Level 4 (31161) Complex EM visit Add On G2211 Diagnoses Atherosclerotic cardiovascular disease I25.10 Bifascicular block I45.2 Type 2 diabetes mellitus with unspecified complications E11.8 Essential hypertension I10 Other and unspecified hyperlipidemia E78.5 CPT Codes EKG - CPT: 92670-[id number], Complete ([id number])
--- OUTSIDE RECORDS SUMMARY | 2025-05-23 10:35 | XMS_ITS | Patient Health Record ---
Author Organization [facility] Address [address] [place] [address] Care Team Providers Care Calendar Control Clerk Blood Bank Name Role Phone Tasha (RETIRED) Pedro Pablo ROSS Primary Care Provide r Unavailable Cedrick Rodriguez Unavailable [phone] Reason For Referral No Information Medications Medication [...] Problem Status W/U Status Risk Notes Problem [id number] Encounter for screening for malignant neoplasm of colon (Z12.11) Active confirmed Problem [id number] Long-term use of aspirin therapy (Z79.82) Active confirmed Plan Of Treatment Pending Test Test Name Order Date GI BIOPSY 09/08/2019 Future Test Test Name Order Date COLONOSCOPY 06/24/2019 Insurance Providers Payer Name Payer Address Payer Phone Subscriber Number Group Number Insured Name Patient Relationship to Insured Coverage Start Date Coverage End Date [facility] [address] [facility] [phone] [id number] RACHELL LIVINGSTON Self - patient is the insured Medical (General) History Medical History History ICD Code LA 1996 treated with Streptokinase--had a neg. cardiac cath in 2018 Prostate cancer 2014 with radiation Hypertension NIDDM Hypercholesterolemia Neg. screening colonoscopy in 10/2009 Neuropathy Denies CVA,Lung disease,renal disease Surgical History Surgery Date(Month/Year) Appendectomy Cervical spine disk surgery Cataracts Deviated septum Ear surgery for tubes Sinus surgery Ankle surgery for ostomyelitis as a chil d
== END 2025-05-23 09:28 | disposition home or self-care (01) ==
PROVIDERS: PCP Internal Medicine; Visit Provider Internal Medicine
DX: I25.10 Atherosclerotic heart disease of native coronary artery without angina pectoris (principal); I45.2 Bifascicular block; E11.8 Type 2 diabetes mellitus with unspecified complications; I10 Essential (primary) hypertension; E78.5 Hyperlipidemia, unspecified
CPT/HCPCS: 93010; 99214; G2211

== ENCOUNTER → 2025-05-23 09:03 | Outpatient (BNVA) | payer MEDICARE, SELFPAY | PROVIDERS: PCP Internal Medicine; Visit Provider Internal Medicine | DX: I25.10 Atherosclerotic heart disease of native coronary artery without angina pectoris (principal); I45.2 Bifascicular block; I10 Essential (primary) hypertension; E11.8 Type 2 diabetes mellitus with unspecified complications; E78.5 Hyperlipidemia, unspecified; Z79.84 Long term (current) use of oral hypoglycemic drugs | CPT/HCPCS: 93005; 99212 ==

== ENCOUNTER 2025-06-27 08:35 | Outpatient (REF) | payer MEDICARE, SELFPAY ==
--- OUTSIDE RECORDS SUMMARY | 2025-06-27 08:59 | XMS_ITS | Patient Health Record ---
Author Organization [facility] Address [address] [place] [address] Care Team Providers Care Entry Level Manufacturing Engineer Name Role Phone Tasha (RETIRED) Pedro Pablo ROSS Primary Care Provide r Unavailable Cedrick Rodriguez Unavailable [phone] Reason For Referral No Information Medications Medication SIG (Take, Route, Frequency, Duration) Notes Start Date End Date Status Carvedilol 6.25 MG as directed Orally T wice a day Active metFORMIN HCl 500 MG 1 tablet with a alfonso l Orally Once a day; Duration: 30 day(s) Active Zetia 10 MG 1 tablet Orally Once a day; Duration: 30 day(s) Active Aspirin 81 81 MG 1 tablet Orally at hs Active Cinnamon 500 MG as directed Orally Active Gabapentin 100 MG 1 tablet Oral Once a day Active Lipitor 40 MG 1 tablet Orally Once a day; Duration: 30 day(s) Active amLODIPine Besylate 5 MG 1 tablet Orally Once a day; Duration: 30 day(s) Active Lisinopril 40 MG 1 tablet Orally Once a day; Duration: 30 day(s) Active Omeprazole 20 MG 1 capsule Orally Onc e a day; Duration: 30 day(s) Active Immunizations Vaccine Route Administration [...] Problem Status W/U Status Risk Notes Problem Screening for malignant neoplasm of colon (275486407) Encounter for screening for malignant neoplasm of colon (Z12.11) Active confirmed Problem Long-term current use of antiplatelet drug ([id number]) Long-term use of aspirin therapy (Z79.82) Active confirmed Plan Of Treatment Pending Test Test Name Order Date GI BIOPSY 09/08/2019 Future Test Test Name Order Date COLONOSCOPY 06/24/2019 Insurance Providers Payer Name Payer Address Payer Phone Subscriber Number Group Number Insured Name Patient Relationship to Insured Coverage Start Date Coverage End Date [facility] [address] [place] [phone] [id number] RACHELL LIVINGSTON Self - patient is the insured Medical (General) History Medical History History ICD Code [place] 1997 treated with Streptokinase--had a neg. cardiac cath in 2018 Prostate cancer 2014 with radiation Hypertension NIDDM Hypercholesterolemia Neg. screening colonoscopy in 10/2009 Neuropathy Denies CVA,Lung disease,renal disease Surgical History Surgery Date(Month/Year) Appendectomy Cervical spine disk surgery Cataracts Deviated septum Ear surgery for tubes Sinus surgery Ankle surgery for ostomyelitis as a chil d
[2025-06-27 11:12] LABS: Alanine Aminotransferase 27 U/L (0-40); Albumin Level 4.3 g/dL (3.5-5.0); Alkaline Phosphatase 58 U/L (39-117); Anion Gap 10 (12-20); Aspartate Amino Transferase 26 U/L (5-37); Blood Urea Nitrogen 14 mg/dL (9-16); Calcium 9.1 mg/dL (8.4-10.2); Carbon Dioxide 27 mmol/L (22-29); Chloride 108 mmol/L (96-108); Estimated Glomerular Filt Rate > 60; Potassium 4.3 mmol/L (3.3-5.1); Sodium 141 mmol/L (135-145); Total Protein 6.6 g/dL (6.5-8.0)
== END 2025-06-27 08:36 | disposition home or self-care (01) ==
LOC: HO.HMGCLDS 08:35
PROVIDERS: PCP Internal Medicine; Visit Provider Internal Medicine
DX: E11.8 Type 2 diabetes mellitus with unspecified complications (principal)
CPT/HCPCS: 36415; 80053; 83036

== ENCOUNTER 2025-07-05 12:51 | Outpatient (AMB) | payer MEDICARE, SELFPAY ==
--- NOTE | 2025-07-05 12:54 | A.OFFPC_ITS ---
Vital Signs 07/05/25 13:01 Height 5 ft 9 in Weight 195 lb 2 oz BMI 28.8 BP 122/60 Blood Pressure Location Lt brachial Position Sitting Respiration 16 Pulse 70 Pulse Source Pulse Oximeter Temp 97.7 F Temp Source Temporal Artery Scan Pulse Oximetry (%) 97 Oxygen Delivery Method Room Air Intake Visit Reasons: [facility]IL [address] [place] [address] dr/ Follow up - see comments Intake Note: Conner presents in the office today for a follow up. Transferring from [address] Allergies codeine (CODEINE) Allergy (Intermediate, Verified 07/05/25 12:58) HIVES pseudoephedrine (From Sudafed) Allergy (Verified 07/05/25 12:58) Rash Codeine Phosphate Allergy (Unknown, Uncoded 07/05/25 12:58) nausea Tobacco use date assessed: 07/05/25 Fall risk assessment: 1 Fall in past year Last assessed Fall Risk: 07/05/25 Dental Screening Dental Screen Date: 07/05/25 Did you have a dental visit in the last 12 months?: Yes Did you have a dental problem in the last 6 months where you did not have access to dental care?: No Was dental information given to patient?: Patient has dentist HPI HPI Comments History of Present Illness Details The patient is a 80 year old male with a past medical history of CAD s/p AK, type 2 diabetes, hypertension, hyperlipidema, COPD presenting for annual exam. CV: CAD, AK. Following with cardiology. on norvasc, asa, lipitor, coreg. BP well controlled. Denies chest pain dyspnea Type 2 DM: On actos 30mg daily, stopped glipizide, stopped metformin 500 TID. A1C 06/2025 6.9 from 6.9 from 7.7%. Insurance no longer covering CGM. Needs supplies for traditional glucometer. He thinks this is onetouch Asthma: He is doing well. Will hold maintenance inhaler and use prn Colonoscopy in 2019-dr mckinney no need for follow up ROS CONSTITUTIONAL: Denies weight loss, fever and chills. HEENT: Denies changes in vision and hearing. RESPIRATORY: Denies SOB and cough. CV: Denies palpitations and CP GI: Denies abdominal pain, nausea, vomiting and diarrhea. : Denies dysuria and urinary frequency. MSK: Denies new myalgia and joint pain. SKIN: Denies rash and pruritus. NEUROLOGICAL: Denies headache PSYCHIATRIC: Denies recent changes in mood. PHYSICAL EXAM: GENERAL: Alert and oriented x 3. NAD EYES: EOMI. Anicteric. HENT: Moist mucous membranes. No scleral icterus. No cervical lymphadenopathy. LUNGS: Clear to auscultation bilaterally. CARDIOVASCULAR: Regular rate and rhythm. No murmur. No JVD. ABDOMEN: Soft, non-tender +bs EXTREMITIES: No edema. Non-tender. SKIN: No rashes or lesions. Warm. NEUROLOGIC: No focal neurological deficits. CN II-XII grossly intact PSYCHIATRIC: Cooperative. Appropriate mood and affect [facility] Medical History Allergic asthma COPD (chronic obstructive pulmonary disease) Encounter for screening for malignant neoplasm of lung in former smoker who quit in past 15 years with 30 pack year history or greater Other and unspecified hyperlipidemia Essential hypertension Type 2 diabetes mellitus with unspecified complications Atherosclerotic cardiovascular disease Hypercholesterolemia Elevated PSA Scrotal pruritus Hypogonadism in male Incomplete emptying of bladder Myocardial infarction Nocturia Prostate cancer Surgical History History of colonoscopy (~09/08/19) History of neck surgery History of tonsillectomy History of appendectomy Family History Father CVD (cardiovascular disease) Mother No problems noted. Social History Housing: House Alcohol intake: current Alcohol intake frequency: 0-2 drinks per day Alcohol type: beer and hard liquor Patient Tobacco Use Status: Former Tobacco user Years Smoked: 14 +/- e-Cigarette/Vaping Use: Former Use Second Hand Smoke Exposure: No Use of substances other than those prescribed or required for medical reasons: No service: No Current occupational status: retired Current occupation: Right Handed Current occupational exposures/hazards: No Cognitive needs: No Hearing needs: No Vision needs: Yes (rx glasses) Questionnaire Thrive Questionnaire Date Thrive assessed: 02/17/25 TAYLOR-7 AMB Questionnaire TAYLOR-7 Date TAYLOR - 7 assessed: 02/17/25 Source: Developed by Drs. Cedrick Yeboah, Sarita B.Ceasar Aparicio and colleagues, with an educational gaurang from [employer]. Physical exam (Primary Care) Vital Signs: Last Vital Signs Temp 97.7 F 07/05/25 13:01 Pulse 70 07/05/25 13:01 Resp 16 07/05/25 13:01 BP 122/60 07/05/25 13:01 Pulse Ox 97 07/05/25 13:01 Oxygen Delivery Method Room Air 07/05/25 13:01 BMI result Body Mass Index 28.8 Tobacco/Smoking Status: Tobacco use Status Tobacco use date assessed 07/05/25 07/05/25 13:06 Patient Tobacco Use Status Former Tobacco user 07/05/25 13:01 e-Cigarette/Vaping Use Former Use 07/05/25 13:01 Thrive Assessment: Date of Thrive Assessment Date Thrive assessed 02/17/25 07/05/25 12:56 Coding Level of Care Code Est Pt Level 4 (36054) Complex EM visit Add On G2211 Diagnoses Type 2 diabetes mellitus with unspecified complications E11.8 Essential hypertension I10 Extrinsic asthma, unspecified asthma severity, unspecified whether complicated, unspecified whether persistent J45.909 Asthma severity: unspecified severity Asthma persistence: unspecified Asthma complication type: unspecified Assessment & Plan Assessment & Plan (1) Type 2 diabetes mellitus with unspecified complications: Code(s): E11.8 - Type 2 diabetes mellitus with unspecified complications Category: Medical (2) Essential hypertension: Code(s): I10 - Essential (primary) hypertension Category: Medical (3) Allergic asthma: Code(s): J45.909 - Unspecified asthma, uncomplicated Category: Medical Qualifiers: Asthma severity: unspecified severity Asthma persistence: unspecified Asthma complication type: unspecified Qualified Code(s): J45.909 - Unspecified asthma, uncomplicated Plan 80 year old male presenting for follow up Interval history reviewed Diabetes is now well controlled. continue current medication. follow up in 4 months CAD stable on current medications Labs ordered Orders: Orders 2 Complete Blood Count Auto Diff 4 Months D64.9 - Anemia, unspecified, E11.8 - Type 2 diabetes mellitus with unspecified complications Comprehensive Met. Panel 4 Months D64.9 - Anemia, unspecified, E11.8 - Type 2 diabetes mellitus with unspecified complications Lipid Panel 4 Months D64.9 - Anemia, unspecified, E11.8 - Type 2 diabetes mellitus with unspecified complications Hemoglobin A1c 4 Months D64.9 - Anemia, unspecified, E11.8 - Type 2 diabetes mellitus with unspecified complications Microalbumin, Random (w Creat) 4 Months D64.9 - Anemia, unspecified, E11.8 - Type 2 diabetes mellitus with unspecified complications Medications: New OneTouch Ultra Test (blood sugar diagnostic) once daily and as needed 100 ea 3RF NS E11.8 - Type 2 diabetes mellitus with unspecified complications lancets once daily One touch system 100 ea 3RF NS E11.8 - Type 2 diabetes mellitus with unspecified complications Refilled atorvastatin (Lipitor) 40 mg PO DAILY 90 tabs 3RF lisinopril 40 mg PO DAILY 90 tabs 3RF On Hold fluticasone propion-salmeterol 500-50 mcg/dose Hold Comment: Doctor's Order 1 inh inhalation BID 3 ea 3RF
[2025-07-05 13:01] VITALS: BP 122/60; PULSE 70; RESP 16; TEMP 36.5; O2SAT 97; BMI 28.8
--- OUTSIDE RECORDS SUMMARY | 2025-07-05 15:28 | XMS_ITS | Patient Health Record ---
Author Organization [facility] Address [address] [place] [address] Care Team Providers Care Youth Officer Name Role Phone Tasha (RETIRED) Pedro Pablo ROSS Primary Care Provide r Unavailable Cedrick Rodriguez Unavailable [phone] Reason For Referral No Information Medications Medication [...] Problem Screening for malignant neoplasm of colon (627172439) Encounter for screening for malignant neoplasm of colon (Z12.11) Active confirmed Problem Long-term current use of antiplatelet drug ([id number]) Long-term use of aspirin therapy (Z79.82) Active confirmed Plan Of Treatment Pending Test Test Name Order Date GI BIOPSY 09/08/2019 Future Test Test Name Order Date COLONOSCOPY 06/24/2019 Insurance Providers Payer Name Payer Address Payer Phone Subscriber Number Group Number Insured Name Patient Relationship to Insured Coverage Start Date Coverage End Date [facility] [address] [place] [phone] [id number] RACHELL LIVINGSTON Self - patient is the insured Medical (General) History Medical History History ICD Code [place] 1997 treated with Streptokinase--had a neg. cardiac cath in 2018 Prostate cancer 2014 with radiation Hypertension NIDDM Hypercholesterolemia Neg. screening colonoscopy in 10/2009 Neuropathy Denies CVA,Lung disease,renal disease Surgical History Surgery Date(Month/Year) Appendectomy Cervical spine disk surgery Cataracts Deviated septum Ear surgery for tubes Sinus surgery Ankle surgery for ostomyelitis as a chil d
== END 2025-07-05 15:36 | disposition home or self-care (01) ==
LOC: HO.HMCFM 12:51
PROVIDERS: PCP Internal Medicine; Visit Provider Internal Medicine
DX: E11.8 Type 2 diabetes mellitus with unspecified complications (principal); I10 Essential (primary) hypertension; J45.909 Unspecified asthma, uncomplicated

== ENCOUNTER → 2025-07-05 12:51 | Outpatient (BNVA) | payer MEDICARE, SELFPAY | PROVIDERS: PCP Internal Medicine; Visit Provider Internal Medicine | DX: E11.8 Type 2 diabetes mellitus with unspecified complications (principal); J45.909 Unspecified asthma, uncomplicated; I10 Essential (primary) hypertension; D64.9 Anemia, unspecified | CPT/HCPCS: 99212 ==